=== PATIENT | female | born 1965 | race Caucasian/White ===

== ENCOUNTER → 2017-04-22 | Outpatient (CLI) | payer OTHER ==
--- NOTE | 2017-04-22 15:41 | MAMMOGRAPHY REPORT ---
BILATERAL DIGITAL SCREENING MAMMOGRAM TOMOSYNTHESIS WITH CAD: 04/22/2017 CLINICAL HISTORY: Routine screening. Patient has no complaints. TECHNIQUE: Breast tomosynthesis in addition to standard 2D mammography was performed. Current study was also evaluated with a Computer Aided Detection (CAD) system. COMPARISON: Comparison is made to exam dated: 12/03/2014 mammogram - [facility]. BREAST COMPOSITION: The tissue of both breasts is heterogeneously dense, which may obscure small mas ses. FINDINGS: The parenchymal pattern is unchanged. No developing mass, architectural distortion or clus ter of suspicious microcalcifications is seen in either breast. IMPRESSION: ACR BI-RADS CATEGORY 2: BENIGN There is no mammographic evidence of malignancy. A 1 year screening mammogram is recommended. The pa tient will receive written notification of the results. Approximately 10% of breast cancers are not detected with mammography. A negative mammographic report should not delay biopsy if a clinically suggestive mass is present. Margoth Escalera M.D. ay/:04/22/2017 08:39:32 Electromatic Typist: Leigh Ann SIFUENTES(R)(M), [facility] letter sent: Normal 1/2 BI-RADS Code: ACR BI-RADS Category 2: Benign
== END | disposition home or self-care (01) ==
LOC: C.MAMM 07:25
PROVIDERS: ATTEND Family Medicine
DX: Z12.31 Encounter for screening mammogram for malignant neoplasm of breast (principal)

== ENCOUNTER 2020-10-23 19:56 | Inpatient (IN) ==
[2020-10-23] MEDS ORDERED: ASPIRIN CHEW 324 MG PO STA (20:32)
[2020-10-23] MEDS ORDERED: SODIUM CHLORIDE 0.9% 1000ML 1,000 ML IV STA (20:32)
[2020-10-23 20:38] LABS: Basophils # (auto) 0.04 K/uL (0-0.2); Basophils % (auto) 0.4 %; Eosinophils # (auto) 0.13 K/uL (0-0.5); Eosinophils % (auto) 1.3 %; Hematocrit (blood only) 43.1 % (37-47); Hemoglobin 14.7 g/dL (12.0-16.0); Immature Granulocytes # (auto) 0.05 K/uL (0.00-0.02); Immature Granulocytes % (auto) 0.5 %; Lymphocytes # (auto) 1.13 K/uL (1.2-3.4); Lymphocytes % (auto) 10.9 %; Mean Corpuscular Hemoglobin 32.9 pg (25-34); Mean Corpuscular Hgb Conc 34.1 g/dL (32-36); Mean Corpuscular Volume 96.4 fL (80-100); Mean Platelet Volume 9.7 fL (7.4-10.4); Monocytes # (auto) 0.72 K/uL (0.11-0.59); Neutrophils # (auto) 8.27 K/uL (1.4-6.5); Neutrophils % (auto) 79.9 %; Platelet Count 240 K/uL (130-400); RDW Coefficient of Variation 13.6 % (11.5-14.5); RDW Standard Deviation 48.1 fL (36.4-46.3); Red Blood Count 4.47 M/uL (4.2-5.4); White Blood Count 10.34 K/uL (4.8-10.8)
[2020-10-23 20:45] LABS: BUN Creatinine Ratio 16.9 (10-20); Blood Urea Nitrogen 16 mg/dl (7-18); Calcium 9.3 mg/dl (8.5-10.1); Carbon Dioxide 27 mmol/L (21-32); Chloride 108 mmol/L (98-107); Est GFR (African American) 80.8 ml/min; Est GFR (Non-African American) 69.8 ml/min; Glucose 89 mg/dl (70-99); Lipase 296 U/L (73-393); Potassium 4.5 mmol/L (3.5-5.1); Sodium 141 mmol/L (136-145)
[2020-10-23 20:49] LABS: Partial Thromboplastin Time 26.2 Seconds (21.0-31.0); Prothrombin Time 10.6 Seconds (9.0-12.0)
[2020-10-23 20:50] LABS: Troponin I < 0.015 ng/ml (0-0.045)
--- NOTE | 2020-10-23 22:45 | History & Physical Report ---
Date of Service October 23, 2020 Assessment & Plan (1) Bradycardia: Plan: Patient is a 54 year old female with PMHx Hypertension and Hereditary Hemorrhagic Telangiectasis presenting today with dizziness and bradycardia, given 1mg Atropine during EMS transport for bradycardia and suspected junctional rhythm of 48 bpm. Symptomatic Bradycardia -?medication related vs Lyme carditis -Recent MRI cardiac on 06/07/20 found to have a normal LV and hyperdynamic systolic LVEF 72% without scarring in the septum to suggest HCM -With suspected junctional rhythm as low as 48BPM while at [facility] and EMS -Received 1mg Atropine via EMS -Currently asyptomatic with HR ~55-60's -Lyme IgG and IgM negative -TSH pending -Hold nadolol and verapamil at this time -Continuous monitor on telemetry -Consider glucagon if HR begins to trend downwards again for beta jacob reversal Dispo: Med/Surg Telemetry for continuos cardiac monitoring FEN: Regular diet DVT: SCDs Code: Full History of Present Illness Chief Complaint: Dizziness Primary Care Provider: Ban Dos Santos PA-C Patient is a 54 year old female with PMHx Hypertension and Hereditary Hemorrhagic Telangiectasis presenting today with dizziness and bradycardia, given 1mg Atropine during EMS transport for bradycardia and suspected junctional rhythm of 48 bpm. Patient notes that she was out and had just started walking in the [facility] with her friend around 4:30PM when she noticed she would be come SOB quickly, diaphoretic, and felt dizzy. They rapidly returned to their cars and [facility] she was found to be significantly bradycardic and EMS was called to transport patient for suspected symptomatic junctional rhythm. Patient was given 0.5mg Atropine x2 during transport. She states that she feels significantly better now. She states in the past month she has only been in the [place] 3 times for walks. She notes she takes Nadolol and Verapamil for her hypertension, stating that the verapamil was only added this past March and that she had been on the Nadalol since at least February 2019. She otherwise denies any fever, chills, SOB, chest pain, abdominal pain, headache, current dizziness, NVD. She recently had an MRI cardiac on 06/07/20 screening for HCM found to have a normal LV and hyperdynamic systolic LVEF 72% without scarring in the septum to suggest HCM Medical Hx: HTN, Hereditary Hemorrhagic Telangiectasis, Prolonged QT Surg Hx: Nasal Cautery in June 2020 Soc Hx: Denies tobacco or illicit drug use. Drinks 1-2 drinks per year Allergies Allergy/AdvReac Type Severity Reaction Status Date / Time animal dander Allergy Intermediate SNEEZING, Verified 10/26/20 09:01 CONGESTION POLLEN Allergy Intermediate HAYFEVER Uncoded 10/26/20 09:01 SYMPTOMS Home Medications Medication Instructions Recorded Confirmed Type nadolol 40 mg tablet (Corgard) 40 mg PO DAILY 05/09/20 05/10/20 History verapamil 120 mg tablet,extended 120 mg PO DAILY 05/09/20 05/10/20 History release albuterol sulfate 90 mcg/actuation 2 puff INHALATION DIRECTED PRN 10/23/20 10/23/20 History aerosol inhaler fluticasone 250 mcg-salmeterol 50 1 inh INHALATION BID PRN 10/23/20 10/23/20 History mcg/dose blistr powdr for inhalation (Advair Diskus) levonorgestrel 20 mcg/24 hours (6 20 mcg INTRAUTERINE CONTINOUS 10/23/20 10/23/20 History yrs) 52 mg intrauterine device (Mirena) Past Med/Surg History Medical History (Updated 10/26/20 @ 09:01 by Ban Culp) Asthma Bradycardia 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 Dyspnea HTN (hypertension) Hx of hereditary hemorrhagic telangiectasia (HHT) Hx of primary hypertension No pertinent family history Surgical History (Updated 10/26/20 @ 09:01 by Ban Culp) Hx of breast lump removal benign No pertinent past surgical history Social History (System 10/26/20 @ 09:01 by Ban Culp) Smoking Status: Never smoker Hx Alcohol Use: No Hx Substance Use: No Preferred Language: Malagasy Communication Ability: Effective Beliefs That Will Affect Care: None Current Living Situation: Spouse Feels Safe at Home: Yes Assistive Devices: Glasses Review of Systems Review of Systems: All systems reviewed & are unremarkable except as noted in Subjective Physical Exam Constitutional: well developed, well nourished and cooperative; no acute distress Eyes: PERRL, conjunctivae normal, anicteric sclerae ENMT: external ear and nose normal, oropharynx normal Neck: trachea midline, no thyromegaly Respiratory: normal respiratory effort; no cough Auscultation: lungs clear to auscultation bilaterally; no diminished lung sounds, no crackles, no rales and no wheezes Cardiovascular: Rate/Rhythm: regular rhythm and + bradycardic (54BPM ) Heart Sounds: normal S1 and normal S2; no murmur and no cardiac rub Vessels: no JVD Extremities: no calf tenderness and no edema Gastrointestinal (Abdomen): Inspection/Auscultation: abdomen normal to inspection and normal bowel sounds; abdomen not distended Percussion/Palpation: abdomen soft; abdomen nontender, no guarding and abdomen not rigid Musculoskeletal: no cyanosis or clubbing, extremities motor strength 5/5 Head/Neck/Chest: normocephalic and head atraumatic Skin: no rashes, warm and dry Psychiatric: A+Ox3, euthymic affect Results & Data Results & Data ([facility]) Vital Signs (Past 12 Hours) Vital Signs Temp Pulse Pulse Resp BP BP Pulse Ox 10/23/20 22:30 55 L 20 101/66 100 10/23/20 20:51 48 L 18 90/61 L 100 10/23/20 20:49 49 L 17 100 10/23/20 20:00 36.4 C L 50 L 16 92/58 L 100 Supervising Physician Co-Signing Physician Notes Attending addendum: I have physically seen this patient, have supervised the medical residents activities, and agree with the H&P unless as otherwise noted. Assessment and Plan: Symptomatic bradycardia- The patient will be admitted to telemetry for serial cardiac enzymes, serial EKG's, cardiac rhythm monitoring and a 2-D echocardiogram with Dopplers. Hold nadolol and verapamil Status post 1 mg of atropine in the outpatient setting given by EMS for heart rate low of 48 Heart rate 55-60 in ED with no symptoms Consult cardiology Remaining orders and notations as noted Resident Activity Tracking Resident Involvement: Resident Care Provided Care Provided: Adult Hospital Medicine
[2020-10-23 23:01] LABS: Lyme Ab IgG w/WB Rflx Negative (Negative); Lyme Ab IgM w/WB Rflx Negative (Negative)
[2020-10-24] MEDS ORDERED: ALBUTEROL HFA 8 GM INHALER INH PRN (00:13)
--- NOTE | 2020-10-24 02:47 | Emergency Department Note ---
History of Present Illness General Chief complaint: Shortness of Breath/Dyspnea Stated complaint: Shortness of breath Time Seen by Provider: 10/23/20 20:17 Source: patient and RN notes reviewed History of Present Illness Provider complaint: Dizziness Onset (ago): day(s) 1 Associated symptoms: + shortness of breath and + weakness; no chest pain, no cough, no fever/chills, no headaches or no nausea/vomiting 54-year-old female presents emergency department for dizziness. Per the patient, she went out for a walk and approximately 20 to 40 minutes into her walk she became very dizzy and shortness of breath. Patient states she felt like the room was spinning and then she was can pass out. Patient denies any chest pain. Patient was sweaty. Patient states she then went to urgent care. At urgent care the patient was found to be hypotensive and bradycardic and was given atropine a total of 1 mg which improved her symptoms. Home Medications Medication Instructions Recorded Confirmed Type albuterol sulfate 90 mcg/actuation 2 puff INHALATION DIRECTED PRN 10/23/20 10/23/20 History aerosol inhaler fluticasone 250 mcg-salmeterol 50 1 inh INHALATION BID PRN 10/23/20 10/23/20 History mcg/dose blistr powdr for inhalation (Advair Diskus) levonorgestrel 20 mcg/24 hours (6 20 mcg INTRAUTERINE CONTINOUS 10/23/2007/08 History yrs) 52 mg intrauterine device (Mirena) nadolol 40 mg tablet 40 mg PO DAILY 10/23/20 10/23/20 History verapamil 120 mg tablet,extended 120 mg PO DAILY 10/23/20 10/23/20 History release Allergies Allergy/AdvReac Type Severity Reaction Status Date / Time animal dander Allergy Intermediate SNEEZING, Verified 10/23/20 20:37 CONGESTION POLLEN Allergy Intermediate HAYFEVER Uncoded 10/23/20 20:37 SYMPTOMS Past Med/Surg History Medical History (Updated 10/24/20 @ 02:47 by Garrick Lin) Asthma HTN (hypertension) No pertinent family history Surgical History (Updated 10/24/20 @ 02:44 by Garrick Lin) No pertinent past surgical history Social History Smoking Status: Never smoker Hx Alcohol Use: No Hx Substance Use: No Preferred Language: Armenian Communication Ability: Effective Beliefs That Will Affect Care: None Current Living Situation: Spouse Feels Safe at Home: Yes Safety Concerns: Feels Safe At This Time Review of Systems A total of 10 systems reviewed and were otherwise negative Physical Exam Vital Signs Vital Signs - 24 hr 10/23/20 20:00 10/23/20 20:49 10/23/20 20:51 Temperature 36.4 C L Temperature Source Oral Pulse Rate 50 L 49 L Pulse Rate [Apical] 48 L Respiratory Rate 16 17 18 Respiratory Effort / Characteristics Non-Labored Spontaneous Non-Labored Spontaneous Respiratory Depth Normal Normal Blood Pressure 92/58 L Blood Pressure [Left Arm] 90/61 L Blood Pressure Mean 69 Blood Pressure Mean [Left Arm] 70 Pulse Oximetry 100 100 100 Oxygen Delivery Method Room Air Room Air Room Air Sepsis Recent Fever Within 48 Hours No Sepsis New/Unexplained Change in Mental Status N/A Sepsis Action Taken by Nursing No Action Required 10/23/20 22:30 Temperature Temperature Source Pulse Rate Pulse Rate [Apical] 55 L Respiratory Rate 20 Respiratory Effort / Characteristics Non-Labored Spontaneous Respiratory Depth Normal Blood Pressure Blood Pressure [Left Arm] 101/66 Blood Pressure Mean Blood Pressure Mean [Left Arm] 77 Pulse Oximetry 100 Oxygen Delivery Method Room Air Sepsis Recent Fever Within 48 Hours Sepsis New/Unexplained Change in Mental Status Sepsis Action Taken by Nursing Physical Exam GENERAL: She is oriented to person, place, and time. She appears well-developed and well-nourished. She does not appear distressed. HENT: Exam performed. -Head: Normocephalic and atraumatic. -Right Ear: External ear normal. No mastoid tenderness. -Left Ear: External ear normal. No mastoid tenderness. -Mouth/Throat: The oropharynx is clear and moist. No trismus in the jaw. No dental abscesses or uvula swelling. No oropharyngeal exudate or tonsillar absc esses. EYES: Conjunctivae and EOM are normal. Pupils are equal, round, and reactive to light. Right eye exhibits no discharge. Left eye exhibits no discharge. No scleral icterus. NECK: Normal range of motion. Neck supple. No JVD present. No spinous process tenderness present. No carotid bruit present. No rigidity. No tracheal deviation and normal range of motion present. No Brudzinski's sign and no Kernig's sign noted. CV: Bradycardic rate, regular rhythm, normal heart sounds and intact distal p ulses. There is no peripheral edema. Palpable radial pulses bue. PULM/CHEST: Effort normal and breath sounds normal. No respiratory distress. No stridor. She has no wheezes. She has no rales. -Chest Wall: She exhibits no tenderness. ABD: The abdomen is soft. Bowel sounds are normal. She has no distension. No mass is present. There is no tenderness. There is no rebound, no guarding, no Melara's sign and no tenderness at McBurney's point. Rovsig negative MUSC/SKEL: Normal range of motion. There is no peripheral edema, tenderness or deformity. LYMPH: No cervical adenopathy. NEURO: She is alert and oriented to person, place, and time. She has normal strength. No cranial nerve deficit or sensory deficit. Coordination and gait normal. GCS eye subscore is 4. GCS verbal subscore is 5. GCS motor subscore is 6. Cerebellar tests wnl. SKIN: Skin is warm and dry. She is not diaphoretic. PSYCH: She has a normal mood and affect. Behavior is normal. Judgment and thought content normal. Course Course 2017: The patient was evaluated in room B4. A complete history and physical exam was performed Cardiac monitoring: An order was placed for continuous cardiac monitoring. The monitor shows a rate of 50 with sinus rhythm 2215: Vital signs stable. Labs and imaging are within normal limits. Patient will be admitted to the hospitalist team giving her improvement of symptoms with atropine at the urgent care. Administered Medications Discontinued Medications Aspirin (Aspirin Chew 324 Mg) 324 mg PO NOW STA Stop: 10/23/20 20:33 Last Admin: 10/23/20 20:44 Dose: 324 mg Documented by: [id number] Sodium Chloride (Nss 1000ml) 1,000 mls @ 999 mls/hr IV .Q1H1M STA Stop: 10/23/20 21:32 Last Infusion: 10/23/20 21:46 Dose: 0 mls/hr Documented by: [id number] Admin: 10/23/20 20:44 Dose: 999 mls/hr Documented by: [id number] Medical Decision Making Laboratory Data Result diagrams: 10/23/20 19:50 10/23/20 19:50 Lab Results 10/23/20 10/23/20 10/23/20 Range/Units 19:50 19:50 19:50 WBC 10.34 (4.8-10.8) K/uL RBC 4.47 (4.2-5.4) M/uL Hgb 14.7 (12.0-16.0) g/dL Hct 43.1 (37-47) % MCV 96.4 (80-100) fL MCH 32.9 (25-34) pg MCHC 34.1 (32-36) g/dL RDW Std Deviation 48.1 H (36.4-46.3) fL RDW Coeff of Jeannette 13.6 (11.5-14.5) % Plt Count 240 (130-400) K/uL MPV 9.7 (7.4-10.4) fL Immature Gran % (Auto) 0.5 % Neut % (Auto) 79.9 % Lymph % (Auto) 10.9 % [place] % (Auto) 7.0 % Eos % (Auto) 1.3 % Baso % (Auto) 0.4 % Neut # (Auto) 8.27 H (1.4-6.5) K/uL Lymph # (Auto) 1.13 L (1.2-3.4) K/uL [place] # (Auto) 0.72 H (0.11-0.59) K/uL Eos # (Auto) 0.13 (0-0.5) K/uL Baso # (Auto) 0.04 (0-0.2) K/uL Immature Gran # (Auto) 0.05 H (0.00-0.02) K/uL PT 10.6 (9.0-12.0) Seconds INR 1.0 (0.9-1.1) APTT 26.2 (21.0-31.0) Seconds PTT Ratio 1.0 Sodium 141 (136-145) mmol/L Potassium 4.5 (3.5-5.1) mmol/L Chloride 108 H (98-107) mmol/L Carbon Dioxide 27 (21-32) mmol/L Anion Gap 6.0 (3-11) BUN 16 (7-18) mg/dl Creatinine 0.94 (0.6-1.2) mg/dl Est Cr Clr Drug Dosing 60.0 ml/min Est GFR ( Amer) 80.8 ml/min Est GFR (Non-Af Amer) 69.8 ml/min BUN/Creatinine Ratio 16.9 (10-20) Glucose 89 (70-99) mg/dl Calcium 9.3 (8.5-10.1) mg/dl Magnesium 2.0 (1.8-2.4) mg/dl Troponin I < 0.015 (0-0.045) ng/ml Lipase 296 (73-393) U/L TSH 2.160 (0.300-4.500) uIu/ml Lyme Disease IgG Ab (Negative) Lyme Disease IgM Ab (Negative) COVID-19 Eval Order SARS-CoV-2 (PCR) (Negative) 10/23/20 10/23/20 10/23/20 Range/Units 19:50 20:30 20:30 WBC (4.8-10.8) K/uL RBC (4.2-5.4) M/uL Hgb (12.0-16.0) g/dL Hct (37-47) % MCV (80-100) fL MCH (25-34) pg MCHC (32-36) g/dL RDW Std Deviation (36.4-46.3) fL RDW Coeff of Jeannette (11.5-14.5) % Plt Count (130-400) K/uL MPV (7.4-10.4) fL Immature Gran % (Auto) % Neut % (Auto) % Lymph % (Auto) % [place] % (Auto) % Eos % (Auto) % Baso % (Auto) % Neut # (Auto) (1.4-6.5) K/uL Lymph # (Auto) (1.2-3.4) K/uL [place] # (Auto) (0.11-0.59) K/uL Eos # (Auto) (0-0.5) K/uL Baso # (Auto) (0-0.2) K/uL Immature Gran # (Auto) (0.00-0.02) K/uL PT (9.0-12.0) Seconds INR (0.9-1.1) APTT (21.0-31.0) Seconds PTT Ratio Sodium (136-145) mmol/L Potassium (3.5-5.1) mmol/L Chloride (98-107) mmol/L Carbon Dioxide (21-32) mmol/L Anion Gap (3-11) BUN (7-18) mg/dl Creatinine (0.6-1.2) mg/dl Est Cr Clr Drug Dosing ml/min Est GFR ( Amer) ml/min Est GFR (Non-Af Amer) ml/min BUN/Creatinine Ratio (10-20) Glucose (70-99) mg/dl Calcium (8.5-10.1) mg/dl Magnesium (1.8-2.4) mg/dl Troponin I (0-0.045) ng/ml Lipase (73-393) U/L TSH (0.300-4.500) uIu/ml Lyme Disease IgG Ab Negative (Negative) Lyme Disease IgM Ab Negative (Negative) COVID-19 Eval Order Covid19 at [facility] SARS-CoV-2 (PCR) NEGATIVE (Negative) Imaging Data My Impression: Chest x-ray negative. Airway clear. No pneumothorax. No consolidation. No cardiomegaly or cephalization.. No free air under the diaphragm. No fractures of the skeletal structures. ECG Data Additional Comments: Junctional rhythm with a rate of 50. QRS 74. QTc 441. No ST elevation or ST depression. MDM Narrative Vital signs stable. Labs and imaging are within normal limits. Patient will be admitted to the hospitalist team giving her improvement of symptoms with atropine at the urgent care. Impression & Plan Bradycardia, Dyspnea Discharge Plan Visit Data Chief Complaint: Shortness of Breath/Dyspnea Stated Complaint: Shortness of breath Discharge Problem: Bradycardia, Dyspnea Patient Disposition: Admitted As Inpatient Discharge Instructions Interventions: ED Discharge Assessment Last Done: 10/23/20 23:32
[2020-10-24] MEDS ORDERED: MELATONIN 3 MG TAB PO PRN (08:16)
--- NOTE | 2020-10-24 08:47 | XRay Report ---
XR chest 1V portable CLINICAL HISTORY: Chest Pain COMPARISON STUDY: No previous studies for comparison. FINDINGS: Lung volumes are normal. Lungs are clear. There is no pneumothorax or pleural effusion. Car diac size is at the upper limits of normal. Mediastinal contours are normal. There is no evidence for pulmonary edema. IMPRESSION: No acute cardiopulmonary findings. ACT 112: Negative or not required by law. Electronically signed by: Yonny Morales M.D. 10/24/2020 8:45 AM
--- NOTE | 2020-10-24 09:28 | Hospitalist Progress Note ---
Date of Service October 24, 2020 Assessment & Plan (1) Bradycardia: Plan: -likely medication related * vs Lyme carditis, given negative Lyme serologies (unusual for a secondary lyme manifestation). Also per pt, was started on Verapamil [place] Mar. by Dr. Diez with BPs already in the 120s/90s, which likely contributed to dizziness, low BP (though unclear why sudden incidence after being asymptomatic on Verapamil for 7 months) -still on telemetry -currently asymptomatic with HRs in the 50s and 60s -TSH normal -placed cardiology consult-- recs: * continue holding nadolol and verapamil * can be discharged today; f/u with Dr. Diez tomorrow about restarting either Verapamil or Nadolol (should not be on both) * can restart only Verapamil if no contact with Dr. Diez by noon tomorrow Admission and Anticipated Discharge Date Admission Date: October 23, 2020 Supervising Physician Co-Signing Physician Notes I also saw the patient and confirmed boland portions of the history and exam. I agree with the impression and plan as noted in the resident documentation. Please see discharge note of same date for complete attestation. Subjective Azucena Laura is a 54 year old woman who is here for observation after admission for an episode of bradycardia that occurred yesterday. Today she feels fine. Denies SOB, chest pain, wheezing or fatigue. She is ambulating to urinate without difficulty. She has no subjective complaints. She provided additional history in conversation this morning: she became fatigued and dizzy very suddenly while walking in the [place] yesterday; needed multiple stops on her way back to catch her breath; denied crushing chest pain or shortness of breath; further denies any previous similar incidents; received atropine in ambulance for a heart rate of 48. Review of Systems Review of Systems: All systems reviewed & are unremarkable except as noted in HPI & below Physical Exam Constitutional: WD/WN, vitals as above Respiratory: normal respiratory effort, lungs clear to auscultation Cardiovascular: Heart Sounds: + murmur Extremities: normal capillary refill Musculoskeletal: Extremities: extremities normal to inspection Results & Data Results & Data ([facility]) Vital Signs (Past 12 Hours) Vital Signs Temp Pulse Pulse Resp BP BP Pulse Ox 10/24/20 06:52 36.7 C 63 16 98/60 L 98 10/24/20 02:46 36.8 C 50 L 16 96/58 L 98 10/24/20 00:18 36.6 C 54 L 16 108/64 100 10/23/20 22:30 55 L 20 101/66 100 Resident Activity Tracking Resident Involvement: Resident Care Provided Care Provided: Adult Hospital Medicine
--- NOTE | 2020-10-24 10:07 | Electrocardiogram Report ---
Test Reason : Blood Pressure : / mmHG Vent. Rate : 050 BPM Atrial Rate : 036 BPM P-R Int : 000 ms QRS Dur : 074 ms QT Int : 484 ms P-R-T Axes : 000 063 052 degrees QTc Int : 441 ms Poor data quality, interpretation may be adversely affected Junctional rhythm Abnormal ECG No previous ECGs available Confirmed by Manpreet Winslow ([id number]) on 10/24/2020 10:07:15 AM Referred By: REFERRED SELF Confirmed By:Manpreet Winslow
--- NOTE | 2020-10-24 10:19 | Electrocardiogram Report ---
Test Reason : Blood Pressure : / mmHG Vent. Rate : 049 BPM Atrial Rate : 049 BPM P-R Int : 186 ms QRS Dur : 090 ms QT Int : 504 ms P-R-T Axes : 019 049 049 degrees QTc Int : 455 ms Sinus bradycardia Otherwise normal ECG When compared with ECG of 23-OCT-2020 19:56, Sinus rhythm has replaced Junctional rhythm Confirmed by Manpreet Winslow ([id number]) on 10/24/2020 10:18:48 AM Referred By: REFERRED SELF Confirmed By:Manpreet Winslow
--- NOTE | 2020-10-24 14:01 | Cardiology Consultation ---
Date of Consultation October 24, 2020 Assessment & Plan (1) Bradycardia: Patient with transient bradycardia which resolved off negative chronotropic medications. Unclear why she no longer tolerates her long-term negative chronotropic regimen, but her heart rate has now normalized and she is asymptomatic currently. Since her long QT interval is only borderline and has not been associated with symptoms or dysrhythmia, while her dynamic left ventricular outflow tract obstruction has been associated with symptoms (dyspnea on exertion), would favor restarting verapamil and holding nadolol. However, defer this decision to her log brander, Dr. Diez. She is doing well, and can be discharged home off both nadolol and verapamil. I recommended that she call Dr. Diez in the morning for direction on restarting her negative chronotropic medication. I will contact him as well. If for some reason he is not readily contactable, advised the patient to restart verapamil 120 mg daily as of tomorrow midday, but remain off nadolol until she receives a definitive recommendation. Case discussed discussed with Dr. Schreiber (2) Dynamic left ventricular outflow obstruction: Since this has been symptomatic, unless directed otherwise by her primary log brander, she will restart verapamil tomorrow. (3) Long QT interval: As noted, this has been borderline and asymptomatic. Given her hospital admission for bradycardia, she will remain off nadolol unless otherwise directed by her primary log brander. 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 She is followed by Dr. Diez. He has been evaluating her cardiac abnormalities and obtained a cardiac MRI which showed no evidence of myocardial scarring, weighing against hereditary hypertrophic cardiomyopathy. She was placed on the nadolol sometime ago for borderline prolonged QT, verapamil was added for her hyperdynamic left ventricular function. She had tolerated both medications for quite some time, noting that her heart rate was usually in the 60 bpm range. Yesterday well walking she became presyncopal and dyspneic. She was seen in urgent care where she was hypotensive and bradycardic and given atropine with symptomatic improvement. Upon presentation to [facility], she was mildly hypotensive (92/58 mmHg) and mildly bradycardic (junctional bradycardia 50 bpm). Her nadolol and verapamil were held overnight, her rate is now up to 60 bpm and she feels well. She was able to walk to the bathroom and back without difficulty and notes no lightheadedness, dyspnea, or other complaints. She did not have chest pain at any time. Allergies Allergy/AdvReac Type Severity Reaction Status Date / Time animal dander Allergy Intermediate SNEEZING, Verified 10/23/20 20:37 CONGESTION POLLEN Allergy Intermediate HAYFEVER Uncoded 10/23/20 20:37 SYMPTOMS Home Medications Medication Instructions Recorded Confirmed Type albuterol sulfate 90 mcg/actuation 2 puff INHALATION DIRECTED PRN 10/23/20 10/23/20 History aerosol inhaler fluticasone 250 mcg-salmeterol 50 1 inh INHALATION BID PRN 10/23/20 10/23/20 History mcg/dose blistr powdr for inhalation (Advair Diskus) levonorgestrel 20 mcg/24 hours (6 20 mcg INTRAUTERINE CONTINOUS 10/23/20 10/23/20 History yrs) 52 mg intrauterine device (Mirena) nadolol 40 mg tablet 40 mg PO DAILY 10/23/20 10/23/20 History verapamil 120 mg tablet,extended 120 mg PO DAILY 10/23/20 10/23/20 History release Patient History Medical History Asthma HTN (hypertension) No pertinent family history Surgical History No pertinent past surgical history Social History Smoking Status: Never smoker Hx Alcohol Use: No Hx Substance Use: No Preferred Language: Hungarian Communication Ability: Effective Beliefs That Will Affect Care: None Current Living Situation: Spouse Feels Safe at Home: Yes Safety Concerns: Feels Safe At This Time Assistive Devices: Glasses Physical Exam Physical Exam: Adult female who appears comfortable. Normotensive. Pulse 60 bpm and regular without ectopy. Skin: no ecchymoses or generalized lesions. HEENT: unremarkable. Neck: no JVD or carotid bruits. Lungs: clear. Cardiac: regular rhythm, 3/6 systolic ejection murmur right upper sternal border with intact aortic closure sound, 2/6 apical holosystolic murmur. No diastolic murmur or gallop. Abdomen: benign. Extremities: no edema, pulses intact. Neurologic: normal affect and conversation, nonfocal. Results & Data ([facility]) Vital Signs (Past 12 Hours) Vital Signs Temp Pulse Pulse Resp BP Pulse Ox 10/24/20 11:37 97.7 F 58 L 18 109/71 98 10/24/20 09:10 54 L 10/24/20 06:52 98.1 F 63 16 98/60 L 98 10/24/20 02:46 98.2 F 50 L 16 96/58 L 98 Laboratory Results Troponin negative. Normal electrolytes, BUN 16, creatinine 0.94. Diagnostic Findings ECG yesterday showed junctional rhythm at 50 bpm with a corrected QT of 441 ms. ECG today showed sinus bradycardia at 49 bpm with a corrected QT of [address] Diez's office 03/31/2020 showed sinus rhythm at 67 bpm with QTC of 450 ms. Echocardiogram April 2020 showed EF 76% with mild LVH and asymmetric septal hypertrophy (up to 1.4 cm wall thickness), grade 2 diastolic dysfunction, LVOT dynamic obstruction with peak velocity of 3.3 m/s, systolic anterior motion of the anterior mitral leaflet with moderate mitral regurgitation. Cardiac MRI May 2020 showed moderate asymmetric basal septal hypertrophy with accelerated LVOT flow and CARLOS of the mitral valve with mild MR. No evidence of myocardial fibrosis or scarring. PG Care Time/CCT Total # of Minutes Spent Total Time Spent with Patient: Total time spent is greater than 50% in coordination of care (as documented) at patient's floor/unit and/or counseling patient: Coding Level of Care Code 70159 Inpt Consult Level 4 Diagnoses Long QT interval R94.31 Dynamic left ventricular outflow obstruction I51.89 Bradycardia R00.1
--- NOTE | 2020-10-24 17:46 | Discharge Summary ---
Date of Service October 24, 2020 Admission HPI Per Admitting Provider Patient is a 54 year old female with PMHx Hypertension and Hereditary Hemorrhagic Telangiectasis presenting today with dizziness and bradycardia, given 1mg Atropine during EMS transport for bradycardia and suspected junctional rhythm of 48 bpm. Patient notes that she was out and had just started walking in the [place] with her friend around 4:30PM when she noticed she would be come SOB quickly, diaphoretic, and felt dizzy. They rapidly returned to their cars and patient presented to [facility] where she was found to be significantly bradycardic and EMS was called to transport patient for suspected symptomatic j unctional rhythm. Patient was given 0.5mg Atropine x2 during transport. She states that she feels significantly better now. She states in the past month she has only been in the [place] maybe 3 times for walks. She notes she takes Nadolol and Verapamil for her hypertension, stating that the verapamil was only added this past March and that she had been on the Nadalol since at least February 2019. She otherwise denies any fever, chills, SOB, chest pain, abdominal pain, headache, current dizziness, NVD. She recently had an MRI cardiac on 06/07/20 screening for HCM found to have a normal LV and hyperdynamic systolic LVEF 72% without scarring in the septum to suggest HCM Medical Hx: HTN, Hereditary Hemorrhagic Telangiectasis, Prolonged QT Surg Hx: Nasal Cautery in June 2020 Soc Hx: Denies tobacco or illicit drug use. Drinks 1-2 drinks per year Admission Exam Per Admitting Provider Constitutional: well developed, well nourished and cooperative; no acute distress Eyes: PERRL, conjunctivae normal, anicteric sclerae ENMT: external ear and nose normal, oropharynx normal Neck: trachea midline, no thyromegaly Respiratory: normal respiratory effort; no cough Auscultation: lungs clear to auscultation bilaterally; no diminished lung sounds, no crackles, no rales and no wheezes Cardiovascular: Rate/Rhythm: regular rhythm and + bradycardic (54BPM ) Heart Sounds: normal S1 and normal S2; no murmur and no cardiac rub Vessels: no JVD Extremities: no calf tenderness and no edema Gastrointestinal (Abdomen): Inspection/Auscultation: abdomen normal to inspection and normal bowel sounds; abdomen not distended Percussion/Palpation: abdomen soft; abdomen nontender, no guarding and abdomen not rigid Musculoskeletal: no cyanosis or clubbing, extremities motor strength 5/5 Head/Neck/Chest: normocephalic and head atraumatic Skin: no rashes, warm and dry Psychiatric: A+Ox3, euthymic affect Principal Diagnosis Bradycardia Discharge Exam Constitutional WD/WN, vitals as above Respiratory normal respiratory effort, lungs clear to auscultation Cardiovascular Heart Sounds: + murmur Extremities: normal capillary refill Musculoskeletal Extremities: extremities normal to inspection Discharge Data Allergies Allergy/AdvReac Type Severity Reaction Status Date / Time animal dander Allergy Intermediate SNEEZING, Verified 10/23/20 20:37 CONGESTION POLLEN Allergy Intermediate HAYFEVER Uncoded 10/23/20 20:37 SYMPTOMS Consultations 10/23/20 22:16 ED Decision to Admit Stat 10/24/20 11:15 Consult Cardiology Routine Hospital Course (1) Bradycardia: Azucena Laura is a 54 year old woman with a PMHx of hereditary telangie ctasia, and prolonged QT syndrome, who presented to the ED with dizziness and SOB, then evaluated and admitted for bradycardia. She received atropine on her way to the ED, which improved her HR to normal ranges. She was placed under observation with telemetry and cardiology was consulted to provide medication guidance. -fortunately, no further episodes of bradycardia or pauses were observed on te lemetry -as for etiology, electrolytes normal, TSH w/in normal limits, Lyme serology negative -thought to be medication related (pt on nadolol for hx of long QT) and verapamil * explanation for sudden symptomatic bradycardia (given that she has been on nadolol since feb 2019 and Verapamil since 2020 with no prior episodes) remains to be determined -cardiology consulted; cleared for discharge; advised holding both nadolol and verapamil until she follows up with cardiology outpatient tomorrow with Dr. Diez Total Time Total Time Spent Total Time Spent (In Minutes): 30 minutes Total Time Includes: Examination of the Patient, Discharge Planning, Medication Reconciliation and Communication With Other Providers Discharge Plan Discharge Items Patient Disposition: Home - Self-Care Reason For Visit: SYMPTOMATIC BRADYCARDIA Discharge Diagnosis: Bradycardia Activity: Per Instructions section Non-emergency contact: Primary Care Provider Call non-emergency contact if: your symptoms worsen Follow-up/Referrals: Ban Dos Santos PA-C [Primary Care Provider] - Diet: Regular Addtl Attending Provider Instructions: Dear Azucena, You were brought to the hospital for shortness of breath on exertion. You were evaluated at the hospital and admitted for bradycardia, or a slow heart rate. You received atropine before you arrived at the hospital for your slow heart rate, which brought your HR up to a normal level. We monitored your heart rate and rhythm during your hospital stay, and fortunately we observed no further abnormal rates. We consulted with the cardiology team to provide additional guidance as well, Dr. Winslow recommend you hold (refrain from taking) your Verapamil and Nadolol. You should call your driver sales, Dr. Diez, tomorrow morning, 10/25/20 and ask him if you should resume one or both of those medications. If you have not heard from him by noon tomorrow, you can restart only the Verapamil. You should also follow up with your primary care provider. If you experience the same symptoms as before, do not hesitate to return to the Emergency Department. You should also come back if you experience any crushing chest pain (at rest or with exertion), dizziness or fainting, or shortness of breath with mild to moderate activity. It has been our pleasure to take care of you at [facility]. Please feel free to reach out with any questions. Pending Studies at Discharge: No Stand-Alone Forms: My [facility], Smoking Cessation Medications and DC Order Prescriptions: Continued fluticasone propion-salmeterol [Advair Diskus] 250-50 mcg/dose Blister With Device 1 inh INHALATION BID PRN (Reason: Cold Symptoms) RF: 0 Mirena 20 mcg/24 hours (6 yrs) 52 mg Intrauterine Device 20 mcg INTRAUTERINE CONTINOUS RF: 0 albuterol sulfate 90 mcg/actuation Hfa Aerosol Inhaler 2 puff INHALATION DIRECTED PRN (Reason: Shortness Of Breath) RF: 0 Discontinued verapamil 120 mg Tablet Extended Release 120 mg PO DAILY RF: 0 nadolol 40 mg Tablet 40 mg PO DAILY RF: 0 Discharge Orders: Discharge Order (Routine); Ordered 10/24/20 Ordered By: Reza Nina/Other Patient Handouts: Understanding Bradycardia Admission Data Admit Date/Time: 10/23/20 22:49 Attending Provider: Cal Baez Admit Provider: Jj Rodriguez Primary Care Provider: Ban Dos Santos Other Providers: Igor Lockwood ; Manpreet Winslow Other Interventions: Discharge Summary Assessment (RN) Last Done: 10/24/20 14:28 Supervising Physician Co-Signing Physician Notes I also saw the patient and confirmed boland portions of the history and exam. 54 y/o female admitted yesterday after dizziness, lightheadedness, near-syncope found to be bradycardic. Treated with atropine in route from urgent care office to ED. Beta jacob and CCB held since admission; patient remained in NSR without pause, bradycardia, or symptoms. She is active, has been running for the last three months without symptoms. Notes no with every day activity. Wears a smart watch with HR monitoring, although does not routinely check. History of prolonged QT. Had cardiac MRI a few years ago to assess for HCM, negative; stress test in 2018 negative. Lyme antibodies negative. She follows closely with cardiology and EP. She feels well today. Appreciate cardiology input. Will discharge today; continue to hold both medications. Will coordinate outpatient follow up - in the least, telephone instructions for medications tomorrow. Resident Activity Tracking Resident Involvement: Resident Care Provided Care Provided: Adult Hospital Medicine
--- NOTE | 2020-10-29 12:12 | Billing Data ---
Date of Service October 29, 2020 Coding Level of Care Code 08867 Initial Inpt Care Lvl 2
== END 2020-10-24 15:20 | disposition home or self-care (01) | DRG 310 ==
LOC: EDBD → ED 19:56 → MERGE 22:49 → 2W 22:49 → SUATTDRO 22:49 → 2W 23:32

== ENCOUNTER 2021-05-30 05:49 | Inpatient (IN) ==
[2021-05-30] MEDS ORDERED: PANTOprazole 40 MG in SYRINGE 0 ML IV ONE (06:12)
--- NOTE | 2021-05-30 06:19 | Emergency Department Note ---
History of Present Illness General Chief complaint: Vomiting Stated complaint: BLOODY VOMITING AND DIARRHEA Time Seen by Provider: 05/30/21 06:14 Source: patient Mode of arrival: EMS Limitations: no limitations History of Present Illness Provider complaint: Dizziness, vomiting, GI bleed This is a 55-year-old female brought in by EMS after complaining of dizziness, vomiting, GI bleed at home. Patient states she began having symptoms of increased breathlessness and had an episode of vomiting a week ago Saturday. She states she noticed she was more fatigued and out of breath with exertion as well as having difficulty laying flat. She states she went for a chest x-ray as an outpatient after contacting her family doctor as well as a Covid test. She states she then contacted her signal repairer who sent her for a CAT scan the end of last week. She states she was diagnosed with fluid on her lungs and started on furosemide. She states when she started this she was told to stop taking her verapamil. Patient states she has a history of a mildly enlarged heart. Patient is not on any aspirin or anticoagulation. Patient denies any prior history of GERD/PUD. Patient states she woke up this morning and felt nauseated while trying to get to the bathroom thinking she needed to vomit, she felt increasingly dizzy, and lowered herself to the ground to prevent falling and passing out and vomited. She states she then called for her who came and helped her to the bathroom. EMS reported she had also apparently lost control of her bowels. EMS stated that there was evidence of blood in the patient states her had noted this as well. No prior history of GI bleed. Pt seen during a time of high acuity and national emergency pandemic while wearing PPE. Home Medications Medication Instructions Recorded Confirmed Type albuterol sulfate 90 mcg/actuation 2 puff INHALATION DIRECTED PRN 10/23/20 05/30/21 History aerosol inhaler fluticasone 250 mcg-salmeterol 50 1 inh INHALATION BID PRN 10/23/20 05/30/21 History mcg/dose blistr powdr for inhalation (Advair Diskus) levonorgestrel 20 mcg/24 hours (7 20 mcg INTRAUTERINE CONTINOUS 10/23/20 05/30/21 History yrs) 52 mg intrauterine device (Mirena) cholecalciferol (vitamin D3) 25 25 mcg PO QAM 05/30/21 05/30/21 History mcg (1,000 unit) capsule (Vitamin D3) colchicine 0.6 mg tablet 0.6 mg PO BID 05/30/21 05/30/21 History furosemide 20 mg tablet 20 mg PO QA 05/30/21 05/30/21 History nadolol 20 mg tablet 10 mg PO BID 05/30/21 05/30/21 History Allergies Allergy/AdvReac Type Severity Reaction Status Date / Time animal dander Allergy Intermediate SNEEZING, Verified 05/30/21 13:44 CONGESTION Past Med/Surg History Medical History Asthma Bradycardia 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 Dyspnea HTN (hypertension) Hx of hereditary hemorrhagic telangiectasia (HHT) Hx of primary hypertension No pertinent family history Surgical History Hx of breast lump removal benign No pertinent past surgical history Social History Smoking Status: Never smoker Hx Alcohol Use: Yes Hx Substance Use: No Preferred Language: Czech Communication Ability: Effective Business Instructor Required: No Beliefs That Will Affect Care: None Current Living Situation: Spouse and Family Current Living Situation Comment: and 2 children Feels Safe at Home: Yes Safety Concerns: Feels Safe At This Time Assistive Devices: Glasses Assistive Devices Comment: reading glasses, mouth guard at night Review of Systems A total of 10 systems reviewed and were otherwise negative All systems reviewed & are unremarkable except as noted in HPI & below Physical Exam Vital Signs Vital Signs - 24 hr 05/30/21 06:00 05/30/21 06:02 05/30/21 06:08 Temperature 36.6 C Temperature Source Oral Pulse Rate 85 83 Pulse Rate [Apical] Respiratory Rate 18 18 Respiratory Effort / Characteristics Non-Labored Spontaneous Respiratory Depth Normal Respiratory Pattern Regular Blood Pressure 107/61 Blood Pressure [Right Arm] 91/59 L Blood Pressure Mean 76 Blood Pressure Mean [Right Arm] 69 Blood Pressure Position Lying Blood Pressure Position [Right Arm] Lying Pulse Oximetry 100 Oxygen Delivery Method Room Air Sepsis Recent Fever Within 48 Hours No Sepsis New/Unexplained Change in Mental Status N/A Sepsis Action Taken by Nursing No Action Required 05/30/21 06:10 05/30/21 06:20 05/30/21 07:13 Temperature Temperature Source Pulse Rate 86 87 Pulse Rate [Apical] 87 Respiratory Rate 18 16 18 Respiratory Effort / Characteristics Respiratory Depth Respiratory Pattern Blood Pressure Blood Pressure [Right Arm] 108/73 Blood Pressure Mean Blood Pressure Mean [Right Arm] 84 Blood Pressure Position Blood Pressure Position [Right Arm] Pulse Oximetry 98 97 Oxygen Delivery Method Room Air Sepsis Recent Fever Within 48 Hours Sepsis New/Unexplained Change in Mental Status Sepsis Action Taken by Nursing GENERAL: alert, unwell appearing, well nourished, no distress, non-toxic EYE EXAM: normal conjunctiva, PERRL and EOM's grossly intact OROPHARYNX: no exudate, no erythema, lips, buccal mucosa, and tongue normal and mucous membranes are moist NECK: supple, no nuchal rigidity, no adenopathy, non-tender LUNGS: Clear to auscultation. Normal chest wall mechanics, no w/r/r HEART: NIDA noted - pt aware and states she has been made aware of this previously, S1 normal and S2 normal ABDOMEN: abdomen soft, non-tender, normo-active bowel sounds, no masses, no rebound or guarding. BACK: Back is symmetrical on inspection and there is no deformity, no midline tenderness, no CVA tenderness. SKIN: no rashes and no bruising, pallor UPPER EXTREMITIES: upper extremities are grossly normal. FROM, nml pulses b/l. LOWER EXTREMITIES: No pitting edema. FROM, nml pulses b/l. Evidence of dried blood noted in the patient's feet. NEURO EXAM: Normal sensorium, cranial nerves II-XII grossly intact, normal speech, no gross weakness of arms, no gross weakness of legs. Gross sensation intact. Course Course 0635: VS improved. 0702: No further nausea or vomiting. No abdominal pain. 0735: Pt updated on results. Blood pressure stable. 0740: Discussed with Dr. Reddy. Administered Medications Sodium Chloride (Nss 1000ml) 1,000 mls @ 125 mls/hr IV .Q8H MIRA Stop: 06/29/21 06:14 Last Admin: 05/31/21 03:55 Dose: 125 mls/hr Documented by: [id number] Infusion: 05/31/21 03:55 Dose: 125 mls/hr Documented by: [id number] Admin: 05/30/21 20:10 Dose: 125 mls/hr Documented by: [id number] Infusion: 05/30/21 19:09 Dose: 125 mls/hr Documented by: [id number] Admin: 05/30/21 11:09 Dose: 125 mls/hr Documented by: [id number] Infusion: 05/30/21 11:09 Dose: 0 mls/hr Documented by: [id number] Admin: 05/30/21 06:28 Dose: 125 mls/hr Documented by: [id number] Parenteral Electrolytes (Plasma-Lyte A) 1,000 mls @ 100 mls/hr IV .Q10H MIRA Stop: 05/31/21 10:00 Last Admin: 05/30/21 22:44 Dose: 100 mls/hr Documented by: [id number] Infusion: 05/30/21 21:38 Dose: 100 mls/hr Documented by: [id number] Admin: 05/30/21 11:38 Dose: 100 mls/hr Documented by: [id number] Pantoprazole Sodium 40 mg/ (Syringe) 10 mls @ 5 mls/min IV BID MIRA Stop: 06/29/21 20:59 Last Admin: 05/30/21 20:12 Dose: 5 mls/min Documented by: [id number] Discontinued Medications Pantoprazole Sodium 40 mg/ (Syringe) 10 mls @ 5 mls/min IV NOW ONE Stop: 05/30/21 06:13 Last Admin: 05/30/21 07:03 Dose: 5 mls/min Documented by: [id number] Pantoprazole Sodium (Protonix Bolus/Drip) 0 mls @ 1 mls/hr IV ONE STA Stop: 05/30/21 08:39 Last Admin: 05/30/21 09:57 Dose: Not Given Documented by: [id number] Pantoprazole Sodium 40 mg/ (Dextrose) 100 mls @ 20 mls/hr IV Q5H MIRA Stop: 06/29/21 09:29 Last Admin: 05/30/21 09:57 Dose: Not Given Documented by: [id number] Pantoprazole Sodium 40 mg/ (Dextrose) 100 mls @ 20 mls/hr IV Q5H MIRA Stop: 06/29/21 09:51 Last Admin: 05/30/21 16:42 Dose: Not Given Documented by: [id number] Infusion: 05/30/21 16:41 Dose: 0 mg/hr, 0 mls/hr Documented by: [id number] Infusion: 05/30/21 12:48 Dose: 8 mg/hr, 20 mls/hr Documented by: [id number] Infusion: 05/30/21 12:28 Dose: 0 mg/hr, 0 mls/hr Documented by: [id number] Admin: 05/30/21 10:02 Dose: 8 mg/hr, 20 mls/hr Documented by: [id number] Pantoprazole Sodium 80 mg/ (Dextrose) 120 mls @ 400 mls/hr IV NOW ONE Stop: 05/30/21 10:32 Last Infusion: 05/30/21 12:48 Dose: 0 mls/hr Documented by: [id number] Admin: 05/30/21 12:28 Dose: 400 mls/hr Documented by: [id number] Ioversol (Optiray 320 100ml) 94 ml IV ONCE ONE Stop: 05/30/21 07:14 Last Admin: 05/30/21 07:14 Dose: 94 ml Documented by: [id number] Lidocaine HCl (Lidocaine 2% 2 Ml Vial/Amp(20mg/Ml)) Confirm Administered Dose 4 ml INFIL .STK-MED ONE Stop: 05/30/21 14:46 Last Admin: 05/30/21 16:08 Dose: Not Given Documented by: [id number] Metoclopramide HCl (Metoclopramide Hcl Inj 5 Mg/Ml 2 Ml Vial) 10 mg IV ONE ONE Stop: 05/30/21 11:46 Last Admin: 05/30/21 13:13 Dose: 10 mg Documented by: [id number] Phenylephrine HCl (Phenylephrine 100mcg/Ml 5ml Syr) Confirm Administered Dose 100 mcg .ROUTE .STK-MED ONE Stop: 05/30/21 14:46 Last Admin: 05/30/21 16:09 Dose: Not Given Documented by: [id number] Propofol (Propofol Iv Emulsion 10 Mg/Ml 20 Ml Vial) Confirm Administered Dose 400 mg IV .STK-MED ONE Stop: 05/30/21 14:46 Last Admin: 05/30/21 16:09 Dose: Not Given Documented by: [id number] Critical Care Time Critical Care Time: Yes Total Critical Care Time: 35 Critical care of 35 min performed to assess and manage high likelihood of life- threatening GI bleed and hypotension, involving labs and imaging performed with assessment to evaluate GI bleed and hypotension diagnosis with frequent reassessment. This time includes bedside time, treatment discussions with patient/family/consultants, documentation time and excludes procedure time. Medical Decision Making Differential Diagnosis Differential diagnosis includes etiologies such as diverticulosis, AVM, coagulopathy, colitis, inflammatory bowel disease, malignancy, Ebony-Ford tear, esophagitis, peptic ulcer disease, variceal bleed, gastritis, epistaxis, fissure, hemorrhoids, as well as others were entertained. Medical Records Attestation: I reviewed the patient's medical records. Home Medications Current Medication List: was personally reviewed by me Laboratory Data Attestation: I reviewed the patient's lab results. Result diagrams: 05/30/21 16:45 05/30/21 06:13 Lab Results 05/30/21 05/30/21 05/30/21 Range/Units 06:13 06:13 06:13 WBC 9.07 (4.8-10.8) K/uL RBC 2.40 L (4.2-5.4) M/uL Hgb 7.6 L (12.0-16.0) g/dL Hct 22.5 L (37-47) % MCV 93.8 (80-100) fL MCH 31.7 (25-34) pg MCHC 33.8 (32-36) g/dL RDW Std Deviation 46.8 H (36.4-46.3) fL RDW Coeff of Jeannette 13.5 (11.5-14.5) % Plt Count 212 (130-400) K/uL MPV 8.9 (7.4-10.4) fL Immature Gran % (Auto) 0.3 % Neut % (Auto) 81.7 % Lymph % (Auto) 7.8 % Wallace % (Auto) 9.4 % Eos % (Auto) 0.7 % Baso % (Auto) 0.1 % Neut # (Auto) 7.41 H (1.4-6.5) K/uL Lymph # (Auto) 0.71 L (1.2-3.4) K/uL Wallace # (Auto) 0.85 H (0.11-0.59) K/uL Eos # (Auto) 0.06 (0-0.5) K/uL Baso # (Auto) 0.01 (0-0.2) K/uL Immature Gran # (Auto) 0.03 H (0.00-0.02) K/uL Polychromasia 1+ PT 12.1 H (9.0-12.0) Seconds INR 1.1 (0.9-1.1) Sodium (136-145) mmol/L Potassium (3.5-5.1) mmol/L Chloride (98-107) mmol/L Carbon Dioxide (21-32) mmol/L Anion Gap (3-11) BUN (6-23) mg/dl Creatinine (0.6-1.2) mg/dl Est Cr Clr Drug Dosing Est GFR ( Amer) ml/min Est GFR (Non-Af Amer) ml/min BUN/Creatinine Ratio (10-20) Glucose (70-99(Fasting)) mg/dl Calcium (8.5-10.1) mg/dl Magnesium (1.7-2.4) mg/dl Total Bilirubin (0.2-1.0) mg/dl AST (13-39) U/L ALT (7-52) U/L Alkaline Phosphatase (34-104) U/L Troponin I (0-0.04) ng/ml B-Natriuretic Peptide (0-100) pg/ml Total Protein (6.0-8.3) gm/dl Albumin (3.4-5.0) gm/dl Globulin (2.5-4.0) gm/dl Albumin/Globulin Ratio (0.9-2) Lipase (11-82) U/L SARS-CoV-2, RNA, NAAT (NEGATIVE) Blood Type A Positive Antibody Screen NEGATIVE Crossmatch See Detail 05/30/21 05/30/21 05/30/21 Range/Units 06:13 06:46 07:54 WBC (4.8-10.8) K/uL RBC (4.2-5.4) M/uL Hgb (12.0-16.0) g/dL Hct (37-47) % MCV (80-100) fL MCH (25-34) pg MCHC (32-36) g/dL RDW Std Deviation (36.4-46.3) fL RDW Coeff of Jeannette (11.5-14.5) % Plt Count (130-400) K/uL MPV (7.4-10.4) fL Immature Gran % (Auto) % Neut % (Auto) % Lymph % (Auto) % Wallace % (Auto) % Eos % (Auto) % Baso % (Auto) % Neut # (Auto) (1.4-6.5) K/uL Lymph # (Auto) (1.2-3.4) K/uL Wallace # (Auto) (0.11-0.59) K/uL Eos # (Auto) (0-0.5) K/uL Baso # (Auto) (0-0.2) K/uL Immature Gran # (Auto) (0.00-0.02) K/uL Polychromasia PT (9.0-12.0) Seconds INR (0.9-1.1) Sodium 139 (136-145) mmol/L Potassium 3.8 (3.5-5.1) mmol/L Chloride 109 H (98-107) mmol/L Carbon Dioxide 23 (21-32) mmol/L Anion Gap 7 (3-11) BUN 21 (6-23) mg/dl Creatinine 0.73 (0.6-1.2) mg/dl Est Cr Clr Drug Dosing Not Reportable Est GFR ( Amer) 109.0 ml/min Est GFR (Non-Af Amer) 94.0 ml/min BUN/Creatinine Ratio 28.8 H (10-20) Glucose 137 H (70-99(Fasting)) mg/dl Calcium 7.5 L (8.5-10.1) mg/dl Magnesium 1.7 (1.7-2.4) mg/dl Total Bilirubin 1.0 (0.2-1.0) mg/dl AST 39 (13-39) U/L ALT 28 (7-52) U/L Alkaline Phosphatase 62 (34-104) U/L Troponin I 0.03 (0-0.04) ng/ml B-Natriuretic Peptide 266 H (0-100) pg/ml Total Protein 5.3 L (6.0-8.3) gm/dl Albumin 2.8 L (3.4-5.0) gm/dl Globulin 2.5 (2.5-4.0) gm/dl Albumin/Globulin Ratio 1.1 (0.9-2) Lipase 36 (11-82) U/L SARS-CoV-2, RNA, NAAT NEGATIVE (NEGATIVE) Blood Type Antibody Screen Crossmatch Imaging Data Radiologist's Impression: Abdomen/Pelvis CT 05/30/21 06:12 CT SCAN OF THE ABDOMEN AND PELVIS WITH IV CONTRAST CLINICAL HISTORY: GI bleeding. COMPARISON STUDY: No priors. TECHNIQUE: Following the IV administration of 94 cc of Optiray 320, CT scan of the abdomen and pelvis is performed from the lung bases to the proximal femora. Images are reviewed in the axial, sagittal, and coronal planes. IV contrast was administered without complication. A dose lowering technique was utilized adhering to the principles of ALARA. CT DOSE: 272.87 mGy.cm FINDINGS: Lung bases: The heart is normal in size and without pericardial effusion. The lung bases are clear noting mild bibasilar atelectasis. Liver: The contrast-enhanced liver is normal in size, contour, and attenuation. There is no intrahepatic biliary ductal dilatation. The hepatic veins and portal veins are patent. There are numerous hepatic cysts which measure up to 2.8 cm. Gallbladder: Unremarkable. Spleen: Normal in size and attenuation. Pancreas: A 9 mm simple cystic lesion in the pancreatic head as seen on image #119. The pancreas is otherwise normal in appearance. Adrenal glands: Unremarkable. Kidneys: The contrast enhanced kidneys are normal in size and without hydronephrosis. The kidneys enhance symmetrically. There are 2 subcentimeter cortical hypodensities in the left kidney. These likely represent cysts but are too small for definitive characterization. Abdominal vasculature: The abdominal aorta is normal in course and caliber. Bowel: There is no bowel obstruction. The appendix is well-visualized and normal. Peritoneum: There is no intraperitoneal free air or abdominal ascites. There is a small fat-containing umbilical hernia. Lymphadenopathy: None. Pelvic viscera: The bladder wall appears circumferentially thickened. The uterus is normal as visualized noting an intrauterine device place. There are bilateral ovarian follicles. A dominant follicle on the left measures up to 2.5 cm. Skeletal structures: No lytic or blastic lesions are seen. IMPRESSION: 1. The bladder wall appears circumferentially thickened. Correlate with clinical findings and urinalysis. 2. A 9 mm simple cystic lesion in the pancreatic head likely represents a small sidebranch IPMN. Consider nonemergent GI follow-up. 3. Additional findings as above. ACT 112: Negative or not required by law. Electronically signed by: Curtis Carrion M.D. 05/30/2021 7:34 AM Chest X-Ray 05/30/21 06:12 XR chest 1V portable CLINICAL HISTORY: syncope. Evaluate cardiopulmonary status COMPARISON STUDY: 05/25/2021 TECHNIQUE: 1 view of the chest FINDINGS: Single frontal view of the chest demonstrates the cardiomediastinal silhouette to be within normal limits. The lungs are clear of alveolar opacities. There is no evidence for pleural effusion. There is no evidence for vascular congestion. There is no acute osseous pathology. IMPRESSION: 1. No acute cardiopulmonary disease. ACT 112: Negative or not required by law. Electronically signed by: Seven Juarez M.D. 05/30/2021 7:03 AM ECG Data Attestation: I personally reviewed and interpreted this ECG as follows: Indication: + vomiting and + weakness Rate (beats per minute): 85 Rhythm: + normal sinus ECG Intervals/blocks: + Normal QRS and + Prolonged QT ECG [place]: + Normal ECG ST segments: + Nonspecific ST abnormalities MDM Narrative This is a 55-year-old female who presents after acute GI bleed with vomiting and near syncope at home. Patient initially hypotensive for EMS although was improving with IV fluid rehydration. Patient was afebrile. Patient still mildly nauseated though denied abdominal pain. Patient was mildly ill-appearing on arrival. Labs drawn and sent and patient found to have significant drop in her H&H compared to fall of last year. No prior history of GI bleeds. No use of antiplatelet or anticoagulation. No history of alcohol abuse or cirrhosis. No prior EGD. Patient's other labs reassuring, no significantly elevated BUN. I suspect patient likely with abrupt bleeding from one of her hereditary telangiectasias likely in the esophagus, stomach, or duodenum. Patient was given gentle IV fluid rehydration here as she was recently evaluated for possible pulmonary edema by cardiology and started on furosemide. Patient did remain hemodynamically stable while in the ER. She was kept n.p.o. as a precaution. Case discussed with hospitalist for additional evaluation and management. No evidence of acute GI bleed or other acute pathology on CT imaging. Patient reevaluated and reexamined multiple times while in the emergency room. An order was placed for continuous cardiac monitoring. The monitor shows a rate of 96__ with _normal sinus__ rhythm. Impression & Plan GI bleed, Anemia, Hereditary benign telangiectasia, Dizziness Discharge Plan Visit Data Chief Complaint: Vomiting Stated Complaint: BLOODY VOMITING AND DIARRHEA ED Provider: Suzette Hayes Discharge Problem: GI bleed, Anemia, Hereditary benign telangiectasia, Dizziness Patient Disposition: Admitted As Inpatient Discharge Instructions Interventions: ED Discharge Assessment Last Done: 05/30/21 09:10 Discharge Problem: GI bleed Qualifiers: GI bleed type/associated pathology: unspecified gastrointestinal hemorrhage type Qualified Code(s): K92.2 - Gastrointestinal hemorrhage, unspecified Anemia Qualifiers: Anemia type: other cause Other causes of anemia: acute posthemorrhagic Qualified Code(s): D62 - Acute posthemorrhagic anemia
[2021-05-30] MEDS: SODIUM CHLORIDE 0.9% 1000ML 1,000 ML IV SCH ×3 (06:28→20:10)
[2021-05-30 06:41] LABS: Basophils # (auto) 0.01 K/uL (0-0.2); Basophils % (auto) 0.1 %; Eosinophils # (auto) 0.06 K/uL (0-0.5); Eosinophils % (auto) 0.7 %; Hematocrit (blood only) 22.5 % (37-47); Hemoglobin 7.6 g/dL (12.0-16.0); Immature Granulocytes # (auto) 0.03 K/uL (0.00-0.02); Immature Granulocytes % (auto) 0.3 %; Lymphocytes # (auto) 0.71 K/uL (1.2-3.4); Lymphocytes % (auto) 7.8 %; Mean Corpuscular Hemoglobin 31.7 pg (25-34); Mean Corpuscular Hgb Conc 33.8 g/dL (32-36); Mean Corpuscular Volume 93.8 fL (80-100); Mean Platelet Volume 8.9 fL (7.4-10.4); Monocytes # (auto) 0.85 K/uL (0.11-0.59); Monocytes % (auto) 9.4 %; Neutrophils # (auto) 7.41 K/uL (1.4-6.5); Neutrophils % (auto) 81.7 %; Platelet Count 212 K/uL (130-400); RDW Coefficient of Variation 13.5 % (11.5-14.5); RDW Standard Deviation 46.8 fL (36.4-46.3); White Blood Count 9.07 K/uL (4.8-10.8)
[2021-05-30 06:56] LABS: INR 1.1 (0.9-1.1); Prothrombin Time 12.1 Seconds (9.0-12.0)
[2021-05-30 07:01] LABS: Polychromasia 1+; Troponin I 0.03 ng/ml (0-0.04)
[2021-05-30 07:02] LABS: Alanine Aminotransferase 28 U/L (7-52); Albumin Globulin Ratio 1.1 (0.9-2); Albumin Level 2.8 gm/dl (3.4-5.0); Alkaline Phosphatase 62 U/L (34-104); Anion Gap 7 (3-11); Aspartate Aminotransferase 39 U/L (13-39); BUN Creatinine Ratio 28.8 (10-20); Blood Urea Nitrogen 21 mg/dl (6-23); Calcium 7.5 mg/dl (8.5-10.1); Carbon Dioxide 23 mmol/L (21-32); Chloride 109 mmol/L (98-107); Globulin 2.5 gm/dl (2.5-4.0); Glucose 137 mg/dl (70-99(Fasting)); Lipase 36 U/L (11-82); Magnesium 1.7 mg/dl (1.7-2.4); Potassium 3.8 mmol/L (3.5-5.1); Sodium 139 mmol/L (136-145); Total Protein 5.3 gm/dl (6.0-8.3)
--- NOTE | 2021-05-30 07:04 | XRay Report ---
XR chest 1V portable CLINICAL HISTORY: syncope. Evaluate cardiopulmonary status COMPARISON STUDY: 05/25/2021 TECHNIQUE: 1 view of the chest FINDINGS: Single frontal view of the chest demonstrates the cardiomediastinal silhouette to be within normal li mits. The lungs are clear of alveolar opacities. There is no evidence for pleural effusion. There is no evidence for vascular congestion. There is no acute osseous pathology. IMPRESSION: 1. No acute cardiopulmonary disease. ACT 112: Negative or not required by law. Electronically signed by: Seven Juarez M.D. 05/30/2021 7:03 AM
[2021-05-30] MEDS ORDERED: OPTIRAY 320 100ml IV ONE (07:13)
--- NOTE | 2021-05-30 07:36 | CT Scan Report ---
CT SCAN OF THE ABDOMEN AND PELVIS WITH IV CONTRAST CLINICAL HISTORY: GI bleeding. COMPARISON STUDY: No priors. TECHNIQUE: Following the IV administration of 94 cc of Optiray 320, CT scan of the abdomen and pelvi s is performed from the lung bases to the proximal femora. Images are reviewed in the axial, sagittal , and coronal planes. IV contrast was administered without complication. A dose lowering technique wa s utilized adhering to the principles of ALARA. CT DOSE: 272.87 mGy.cm FINDINGS: Lung bases: The heart is normal in size and without pericardial effusion. The lung bases are clear no ting mild bibasilar atelectasis. Liver: The contrast-enhanced liver is normal in size, contour, and attenuation. There is no intrahepa tic biliary ductal dilatation. The hepatic veins and portal veins are patent. There are numerous hepa tic cysts which measure up to 2.8 cm. Gallbladder: Unremarkable. Spleen: Normal in size and attenuation. Pancreas: A 9 mm simple cystic lesion in the pancreatic head as seen on image #119. The pancreas is o therwise normal in appearance. Adrenal glands: Unremarkable. Kidneys: The contrast enhanced kidneys are normal in size and without hydronephrosis. The kidneys enh ance symmetrically. There are 2 subcentimeter cortical hypodensities in the left kidney. These likely represent cysts but are too small for definitive characterization. Abdominal vasculature: The abdominal aorta is normal in course and caliber. Bowel: There is no bowel obstruction. The appendix is well-visualized and normal. Peritoneum: There is no intraperitoneal free air or abdominal ascites. There is a small fat-containin g umbilical hernia. Lymphadenopathy: None. Pelvic viscera: The bladder wall appears circumferentially thickened. The uterus is normal as visuali zed noting an intrauterine device place. There are bilateral ovarian follicles. A dominant follicle o n the left measures up to 2.5 cm. Skeletal structures: No lytic or blastic lesions are seen. IMPRESSION: 1. The bladder wall appears circumferentially thickened. Correlate with clinical findings and urinaly sis. 2. A 9 mm simple cystic lesion in the pancreatic head likely represents a small sidebranch IPMN. Cons ider nonemergent GI follow-up. 3. Additional findings as above. ACT 112: Negative or not required by law. Electronically signed by: Curtis Carrion M.D. 05/30/2021 7:34 AM
[2021-05-30] MEDS ORDERED: PANTOPRAZOLE BOLUS/DRIP 1 EA IV STA (08:38)
[2021-05-30] MEDS ORDERED: PANTOprazole 40 MG in DEXTROSE 5% 100 ML IV SCH (09:30)
[2021-05-30] MEDS ORDERED: ONDANSETRON INJ 2 MG/ML 2 ML VIAL IV PRN (09:52)
[2021-05-30] MEDS ORDERED: METOCLOPRAMIDE HCL INJ 5 MG/ML 2 ML VIAL IV ONE ×2 (10:00→11:45)
[2021-05-30] MEDS: PANTOprazole 40 MG in DEXTROSE 5% 100 ML IV SCH ×2 (10:02→16:42)
[2021-05-30] MEDS ORDERED: PANTOprazole 80 MG in DEXTROSE 5% 100 ML IV ONE (10:15)
[2021-05-30] MEDS: NORMOSOL-R 1,000 ML IV SCH ×2 (11:38→22:44)
[2021-05-30] MEDS ORDERED: SODIUM CHLORIDE 0.9% 250 ML IV PRN ×3 (12:04→13:46)
--- NOTE | 2021-05-30 13:25 | Anesthesiology Consultation ---
Date of Service May 30, 2021 Assessment & Plan Chart Review Chart Review: Acceptable Risk for Surgery Consults Requested none ASA [id number] Proposed Anesthesia Anesthesia Type: MAC Risk / Benefits Reviewed With: PT / POA / Parent / Guardian, Accepts Plan and Informed Consent Obtained Additional Comments: possible GETA depending on current hematemesis. History Surgery Operation Date: 05/30/21 16:30 Proposed Procedures p Esophagogastroduodenoscopy Dr. Graves - Justo Graves MD EGD Dr Graves Height/Weight Height: 5 ft Weight: 59.1 kg Allergies Allergy/AdvReac Type Severity Reaction Status Date / Time animal dander Allergy Intermediate SNEEZING, Verified 05/30/21 13:44 CONGESTION Medications Home Medications Medication Instructions Recorded Confirmed Last Taken albuterol sulfate 90 mcg/actuation 2 puff INHALATION DIRECTED PRN 10/23/20 05/30/21 05/23/21 aerosol inhaler fluticasone 250 mcg-salmeterol 50 1 inh INHALATION BID PRN 10/23/20 05/30/21 05/23/21 mcg/dose blistr powdr for inhalation (Advair Diskus) levonorgestrel 20 mcg/24 hours (7 20 mcg INTRAUTERINE CONTINOUS 10/23/20 05/30/21 05/30/21 yrs) 52 mg intrauterine device (Mirena) cholecalciferol (vitamin D3) 25 25 mcg PO QAM 05/30/21 05/30/21 05/29/21 mcg (1,000 unit) capsule (Vitamin D3) colchicine 0.6 mg tablet 0.6 mg PO BID 05/30/21 05/30/21 05/29/21 furosemide 20 mg tablet 20 mg PO QAM 05/30/21 05/30/21 05/29/21 40 mg nadolol 20 mg tablet 10 mg PO BID 05/30/21 05/30/21 05/29/21 Active Medications Generic Name Dose Route Start Last Admin Trade Name Freq PRN Reason Stop Dose Admin Sodium Chloride 1,000 mls @ 125 mls/hr 05/30/21 06:15 05/30/21 11:09 Nss 1000ml IV 06/29/21 06:14 125 mls/hr .Q8H MIRA Administration Parenteral Electrolytes 1,000 mls @ 100 mls/hr 05/30/21 09:52 05/30/21 11:38 Plasma-Lyte A IV 06/29/21 09:51 100 mls/hr .Q10H MIRA Administration Pantoprazole Sodium 40 mg/ 100 mls @ 20 mls/hr 05/30/21 09:52 05/30/21 12:48 Dextrose IV 06/29/21 09:51 8 mg/hr Q5H MIRA 20 mls/hr Infusion 8 MG/HR NPO Date Last Intake of Fluids: 05/30/21 Time Last Intake of Fluids: 04:00 Date Last Intake of Solids: 05/30/21 Time Last Intake of Solids: 00:01 Past Medical History Medical History Asthma Bradycardia 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 None since left vent outflow track obstruction Exercise / Class Metabolic Activity III < 4 Walking/Shop/Light housework baseline sob Past Surgical History Surgical History Hx of breast lump removal benign No pertinent past surgical history Past Anesthesia History No Hx of Anesthesia Complications and No Family Hx of Anesthesia Complications History of PONV No Hx of PONV and No Hx of Motion Sickness Social History Smoking Status: Never smoker Hx Alcohol Use: Yes alcohol intake frequency: holidays/special occasions only Hx Substance Use: No substance use type: does not use Review of Systems dizziness with current acute blood loss Physical Exam Vital Signs Last Vital Signs Temp 36.7 C 05/30/21 09:50 Pulse 102 H 05/30/21 10:20 Resp 16 05/30/21 09:50 BP 81/55 L 05/30/21 09:50 Pulse Ox 100 05/30/21 09:52 ENMT Mouth: no TMJ abnormality Thyromental Distance: > or= 3.5 Finger Breadths Mallampati Class: II no blood staining in aw Neck normal visual inspection and trachea midline; neck extension not limited Respiratory normal respiratory effort Auscultation: lungs clear to auscultation bilaterally Cardiovascular Rate/Rhythm: regular rate and regular rhythm Heart Sounds: + murmur Musculoskeletal Spine: normal cervical ROM Extremities: full ROM of extremities Neurologic moves all extremities Psychiatric Orientation: alert and oriented x 3 Testing Laboratory Results 05/30/21 10:54 05/30/21 06:13 PT 12.1 Seconds (9.0-12.0) H 05/30/21 06:13 INR 1.1 (0.9-1.1) 05/30/21 06:13 Blood Type A Positive 05/30/21 06:13 Antibody Screen NEGATIVE 05/30/21 06:13 Electrocardiogram Date: 05/30/21 Findings: + NSR @ (85) [id number] Chest X-Ray Date: 05/30/21 Findings: + NAD
--- NOTE | 2021-05-30 14:07 | Gastrointestinal Consultation ---
Date of Consultation May 30, 2021 Assessment & Plan (1) GI bleed: (2) Hematemesis: (3) Anemia: (4) Hereditary benign telangiectasia: in the setting of recent pericarditis diagnosis and hx hereditary telangiectasia, possible AVM vs. PUD or other etiology recs: NPO supportive care, IVFs protonix drip Proceed with EGD risks/benefits and procedure discussed with patient, who agrees to proceed transfuse PRBC Thank you for allowing me to participate in the care of this patient History of Present Illness Attending Physician: Jj Reddy MD History of Present Illness 55 yo female with recent diagnosis of possible pericarditis, ventricular outflow obstruction here with dizziness, hematemesis. She started vomiting a little over a week ago and over time becamer more fatigued and had dyspnea on exertion. Her patient care technician found fluid in the lungs and thought she might have pericarditis, she is on colchicine currently. This morning she was nauseous and dizzy and had hematemesis it appears and possible blood per rectum as well during an episode of incontinence. Hgb on admission was 7.6, last october was normal. BUN is normal, vitals noted to be hypotensive and tachycardic. CT A/P without liver disease. Has hx NSAID use but not recently, has been a year or so since she used them regularly. Has hx hereditary telangiectasia for which she has had nosebleeds and had to have that cauterized, never had hematochezia, hematemesis though. labs reviewed. albumin is low, normal INR. Allergies Allergy/AdvReac Type Severity Reaction Status Date / Time animal dander Allergy Intermediate SNEEZING, Verified 05/30/21 13:44 CONGESTION Home Medications Medication Instructions Recorded Confirmed Type albuterol sulfate 90 mcg/actuation 2 puff INHALATION DIRECTED PRN 10/23/20 05/30/21 History aerosol inhaler fluticasone 250 mcg-salmeterol 50 1 inh INHALATION BID PRN 10/23/20 05/30/21 History mcg/dose blistr powdr for inhalation (Advair Diskus) levonorgestrel 20 mcg/24 hours (7 20 mcg INTRAUTERINE CONTINOUS 10/23/20 05/30/21 History yrs) 52 mg intrauterine device (Mirena) cholecalciferol (vitamin D3) 25 25 mcg PO QAM 05/30/21 05/30/21 History mcg (1,000 unit) capsule (Vitamin D3) colchicine 0.6 mg tablet 0.6 mg PO BID 05/30/21 05/30/21 History furosemide 20 mg tablet 20 mg PO QAM 05/30/21 05/30/21 History nadolol 20 mg tablet 10 mg PO BID 05/30/21 05/30/21 History Patient History Medical History Asthma Bradycardia 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 Dyspnea HTN (hypertension) Hx of hereditary hemorrhagic telangiectasia (HHT) Hx of primary hypertension No pertinent family history Surgical History Hx of breast lump removal benign No pertinent past surgical history Social History Smoking Status: Never smoker Hx Alcohol Use: Yes Hx Substance Use: No Preferred Language: B[place] Communication Ability: Effective Boat Master Required: No Beliefs That Will Affect Care: None Current Living Situation: Spouse and Family Current Living Situation Comment: and 2 children Feels Safe at Home: Yes Safety Concerns: Feels Safe At This Time Assistive Devices: Glasses Assistive Devices Comment: reading glasses, mouth guard at night Review of Systems Constitutional: no fever, no chills and no weight loss Eyes: as per Subjective / HPI Ear, Nose, Mouth, Throat: as per Subjective / HPI Respiratory: no dyspnea and no dyspnea on exertion Cardiovascular: no chest pain and no palpitations Gastrointestinal: as per Subjective / HPI Musculoskeletal: no joint pain and no swelling Integumentary: no rash and no lesions Neurologic: no numbness and no paresthesia Psychiatric: no depression and no anxiety Endocrine: no fatigue Hematologic / Lymphatic: no easy bleeding and no easy bruising Physical Exam Constitutional: WD/WN, vitals as above Eyes: EOM intact bilaterally Neck: normal visual inspection Respiratory: normal respiratory effort, lungs clear to auscultation Cardiovascular: Rate/Rhythm: regular rhythm and + tachycardic Heart Sounds: normal S1, normal S2 and + murmur Gastrointestinal (Abdomen): Inspection/Auscultation: abdomen normal to inspection; abdomen not distended Percussion/Palpation: abdomen soft; abdomen nontender and no hepatosplenomegaly Musculoskeletal: Extremities: no cyanosis Gait: normal gait Skin: no rashes, warm and dry Neurologic: moves all extremities Psychiatric: A+Ox3, euthymic affect Results & Data ([facility]) Vital Signs (Past 12 Hours) Vital Signs Temp Pulse Pulse Resp BP BP BP 05/30/21 13:49 37.1 C 100 H 16 77/57 L 05/30/21 10:20 102 H 05/30/21 09:52 05/30/21 09:50 36.7 C 98 H 16 81/55 L 05/30/21 09:00 90 18 92/58 L 05/30/21 07:13 87 18 108/73 05/30/21 06:20 87 16 05/30/21 06:10 86 18 05/30/21 06:08 83 18 05/30/21 06:02 36.6 C 85 18 107/61 05/30/21 06:00 91/59 L Pulse Ox Pulse Ox 05/30/21 13:49 100 05/30/21 10:20 05/30/21 09:52 100 05/30/21 09:50 100 05/30/21 09:00 97 05/30/21 07:13 97 05/30/21 06:20 98 05/30/21 06:10 05/30/21 06:08 05/30/21 06:02 100 05/30/21 06:00 PG Care Time/CCT Total # of Minutes Spent Total Time Spent with Patient: Total time spent is greater than 50% in coordination of care (as documented) at patient's floor/unit and/or counseling patient: Coding Level of Care Code 59120 Inpt Consult Level 4 Diagnoses GI bleed K92.2 Hematemesis K92.0 Anemia D64.9 Hereditary benign telangiectasia I78.0
[2021-05-30] MEDS ORDERED: PROPOFOL IV EMULSION 10 MG/ML 20 ML VIAL IV ONE (14:45)
[2021-05-30] MEDS ORDERED: PHENYLEPHRINE 100MCG/ML 5ML SYR ONE (14:45)
[2021-05-30] MEDS ORDERED: LIDOCAINE 2% 2 ML VIAL/AMP(20MG/ML) INFIL ONE (14:45)
--- NOTE | 2021-05-30 14:59 | GI REPORT ---
Patient Name: Azucena Laura Procedure Date: 05/30/2021 1:39 PM Date of : 1965 Admit Type: Inpatient Age: 55 Gender: Female Attending MD: Justo Graves MD Procedure: Small bowel enteroscopy Providers: Justo Graves MD Referring MD: Jj Reddy Indications: Iron deficiency anemia secondary to chronic blood loss, Hematemesis Medicines: Monitored Anesthesia Care Complications: No immediate complications. Estimated blood loss: None. Estimated Blood Loss: Estimated blood loss: none. Procedure: Pre-Anesthesia Assessment: - Prior Anticoagulants: The patient has taken no previous anticoagulant or antiplatelet agents. - ASA Grade Assessment: III - A patient with severe systemic disease. After obtaining informed consent, the endoscope was passed under direct vision. Throughout the procedure, the patient's blood pressure, pulse, and oxygen saturations were monitored continuously. The Colonoscope was introduced through the mouth, and advanced to the third part of duodenum. After obtaining informed consent, the endoscope was passed under direct vision. Throughout the procedure, the patient's blood pressure, pulse, and oxygen saturations were monitored continuously.The upper GI endoscopy was accomplished without difficulty. The patient tolerated the procedure well. Findings: A non-bleeding Ebony-Ford tear with stigmata of recent bleeding was found at the GE junction. Estimated blood loss: none. A few small angioectasias with no bleeding were found in the gastric body. Coagulation for bleeding prevention using argon plasma at 1.2 liters/minute and 35 cornell was successful. Estimated blood loss: none. Multiple small angioectasias with bleeding on contact were found in the second portion of the duodenum and in the third portion of the duodenum. Coagulation for bleeding prevention using argon plasma at 1.2 liters/minute and 30 cornell was successful. Estimated blood loss: none. no evidence of ulcers or blood in the stomach. no evidence of ulcers in the duodenum. Impression: - Ebony-Ford tear. - A few non-bleeding angioectasias in the stomach. Treated with argon plasma coagulation (APC). - Multiple angioectasias in the duodenum. Treated with argon plasma coagulation (APC). - No specimens collected. Recommendation: - [facility]. - NPO today. can advance to clear liquid diet tomorrow morning if stable -antiemetics prn, supportive care, IVFs -suspect her blood loss anemia is chronic from AVMs, would consider obtaining a capsule endoscopy as an outpatient and possibly an outpatient colonoscopy -can d/c protonix drip and change to protonix daily for now -avoid NSAIDS -if rebleeds would recommend a tagged RBC scan to further evaluate. Justo Graevs MD 05/30/2021 2:58:41 PM This report has been signed electronically. Note Initiated On: 05/30/2021 1:39 PM Number of Addenda: 0 I attest to the content of the Intraoperative Record and orders documented therein, exceptions below {[id number]}
--- NOTE | 2021-05-30 15:11 | Anesthesiology Progress Note ---
Date of Service May 30, 2021 Anesthesia Post Procedure Vital Signs Vital Signs: Temp Pulse Pulse Resp BP BP BP 05/30/21 14:59 93 H 16 105/65 05/30/21 13:49 37.1 C 100 H 16 77/57 L 05/30/21 10:20 102 H 05/30/21 09:52 05/30/21 09:50 36.7 C 98 H 16 81/55 L 05/30/21 09:00 90 18 92/58 L 05/30/21 07:13 87 18 108/73 05/30/21 06:20 87 16 05/30/21 06:10 86 18 05/30/21 06:08 83 18 05/30/21 06:02 36.6 C 85 18 107/61 05/30/21 06:00 91/59 L Pulse Ox Pulse Ox 05/30/21 14:59 100 05/30/21 13:49 100 05/30/21 10:20 05/30/21 09:52 100 05/30/21 09:50 100 05/30/21 09:00 97 05/30/21 07:13 97 05/30/21 06:20 98 05/30/21 06:10 05/30/21 06:08 05/30/21 06:02 100 05/30/21 06:00 Transfer of Care Handoff Completed per policy Notes Mental Status: alert / awake / arousable Patient Amnestic to Procedure: Yes Nausea / Vomiting: adequately controlled Pain: adequately controlled Airway Patency, RR, SpO2: stable & adequate BP & HR: stable & adequate Hydration State: stable & adequate Anesthetic Complications: no major complications apparent and Pt Satisfied with anesthetic care Notes: given 2 units pRBC intraop with BP improvement. No anes complications.
--- NOTE | 2021-05-30 16:30 | History & Physical Report ---
Date of Service May 30, 2021 Assessment & Plan (1) Anemia: Plan: Patient has acute blood loss anemia but lack of melena or rising BUN this year appears to be in all upper GI. Likely this is a Ebony-Ford tear however her hereditary hemorrhagic telangiectasia likely may play a role. Should be transfused packed red blood cells kept n.p.o. placed on Protonix GI consultation for upper endoscopy will be undertaken (2) Hereditary benign telangiectasia: (3) HTN (hypertension): Plan: Patient previously on nadolol her blood pressure is low subsequently this will be held at this time as well as her diuretic. (4) Dynamic left ventricular outflow obstruction: Plan: Patient follows Dr. Diez for dynamic left ventricular outflow tract obstruction she does have a murmur on examination. Caution with volume expansion however hypovolemia may augment her flow dynamics being poor she received crystalloid solution in the ER 2 units of blood during her procedure and will be maintained on an additional infusion of fluids overnight Admission and Anticipated Discharge Date Admission Date: May 30, 2021 History of Present Illness Primary Care Provider: Ban Dos Santos PA-C Patient presents to the ER via EMS for hematemesis. Reportedly the patient been sick for a week to 10 days after initiating colchicine therapy from her plaster tender for possible pericarditis. Patient adamantly denies taking any nonsteroidals ibuprofen Aleve etc. She is not a heavy alcohol user caffeine user. She is never had a GI bleed denies any melena. Vomitus was bright red blood. Does have history of hereditary telangiectasia low to her knowledge has not had much problems from them with regard to nosebleeds or other bleeding etc. In the ER she is hemodynamically stable she is no melena her BUN is elevated and she has anemia with a hemoglobin in the 7 g range. She is consented for blood kept n.p.o. and will have a likely endoscopy Allergies Allergy/AdvReac Type Severity Reaction Status Date / Time animal dander Allergy Intermediate SNEEZING, Verified 05/30/21 13:44 CONGESTION Home Medications Medication Instructions Recorded Confirmed Type albuterol sulfate 90 mcg/actuation 2 puff INHALATION DIRECTED PRN 10/23/20 05/30/21 History aerosol inhaler fluticasone 250 mcg-salmeterol 50 1 inh INHALATION BID PRN 10/23/20 05/30/21 History mcg/dose blistr powdr for inhalation (Advair Diskus) levonorgestrel 20 mcg/24 hours (7 20 mcg INTRAUTERINE CONTINOUS 10/23/20 05/30/21 History yrs) 52 mg intrauterine device (Mirena) cholecalciferol (vitamin D3) 25 25 mcg PO QAM 05/30/21 05/30/21 History mcg (1,000 unit) capsule (Vitamin D3) colchicine 0.6 mg tablet 0.6 mg PO BID 05/30/21 05/30/21 History furosemide 20 mg tablet 20 mg PO QAM 05/30/21 05/30/21 History nadolol 20 mg tablet 10 mg PO BID 05/30/21 05/30/21 History Past Med/Surg History Medical History (Updated 05/30/21 @ 14:14 by Justo Graves MD) Asthma Bradycardia 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 Dyspnea HTN (hypertension) Hx of hereditary hemorrhagic telangiectasia (HHT) Hx of primary hypertension No pertinent family history Surgical History Hx of breast lump removal benign No pertinent past surgical history Social History Smoking Status: Never smoker Hx Alcohol Use: Yes Hx Substance Use: No Preferred Language: Pashto Communication Ability: Effective Android Platform Developer Required: No Beliefs That Will Affect Care: None Current Living Situation: Spouse and Family Current Living Situation Comment: and 2 children Feels Safe at Home: Yes Safety Concerns: Feels Safe At This Time Assistive Devices: Glasses Assistive Devices Comment: reading glasses, mouth guard at night Review of Systems Review of Systems: Mild distress and fatigue no headache, no visual changes no speech or swallowing issues no chest pain, pressure or palpitations no shortness of breath, cough or wheezes no abdominal pain, mild and persistent nausea , vomiting of bright red blood no melena no dysuria, hematuria or frequency no focal joint pain or swelling no back pain, CVA tenderness or radicular pain no bruising, bleeding or rashes no focal signs of weakness or numbness or altered sensation no complaints of anxiety or depression.. Physical Exam Physical Exam: The patient appeared well nourished and normally developed. Vital signs as documented. Head exam is normocephalic atraumatic Neck is without JVD, thyromegaly, or carotid bruits. Lungs are clear to auscultation, no focal loss of breath sounds Cardiac exam, Rhythm is regular.. No murmurs, rubs or gallops. Abdominal exam reveals normal bowel sounds, soft non tender, no masses Extremities are nonedematous and both pedal pulses are present Neurologic exam is alert and oriented, no focal loss of strength or sensation Skin is without bruises or rashes Psychologically is without concerns for anxiety or depression.. Results & Data Results & Data ([facility]) Vital Signs (Past 12 Hours) Vital Signs Temp Pulse Pulse Resp BP BP BP 05/30/21 15:29 92 H 16 93/53 L 05/30/21 15:14 91 H 16 96/52 L 05/30/21 14:59 93 H 16 105/65 05/30/21 13:49 98.8 F 100 H 16 77/57 L 05/30/21 10:20 102 H 05/30/21 09:52 05/30/21 09:50 98.1 F 98 H 16 81/55 L 05/30/21 09:00 90 18 92/58 L 05/30/21 07:13 87 18 108/73 05/30/21 06:20 87 16 05/30/21 06:10 86 18 05/30/21 06:08 83 18 05/30/21 06:02 97.9 F 85 18 107/61 05/30/21 06:00 91/59 L Pulse Ox Pulse Ox 05/30/21 15:29 99 05/30/21 15:14 98 05/30/21 14:59 100 05/30/21 13:49 100 05/30/21 10:20 05/30/21 09:52 100 05/30/21 09:50 100 05/30/21 09:00 97 05/30/21 07:13 97 05/30/21 06:20 98 05/30/21 06:10 05/30/21 06:08 05/30/21 06:02 100 05/30/21 06:00 Diagnostic Findings Abdomen/Pelvis CT 05/30/21 06:12 CT SCAN OF THE ABDOMEN AND PELVIS WITH IV CONTRAST CLINICAL HISTORY: GI bleeding. COMPARISON STUDY: No priors. TECHNIQUE: Following the IV administration of 94 cc of Optiray 320, CT scan of the abdomen and pelvis is performed from the lung bases to the proximal femora. Images are reviewed in the axial, sagittal, and coronal planes. IV contrast was administered without complication. A dose lowering technique was utilized adhering to the principles of ALARA. CT DOSE: 272.87 mGy.cm FINDINGS: Lung bases: The heart is normal in size and without pericardial effusion. The lung bases are clear noting mild bibasilar atelectasis. Liver: The contrast-enhanced liver is normal in size, contour, and attenuation. There is no intrahepatic biliary ductal dilatation. The hepatic veins and portal veins are patent. There are numerous hepatic cysts which measure up to 2.8 cm. Gallbladder: Unremarkable. Spleen: Normal in size and attenuation. Pancreas: A 9 mm simple cystic lesion in the pancreatic head as seen on image #119. The pancreas is otherwise normal in appearance. Adrenal glands: Unremarkable. Kidneys: The contrast enhanced kidneys are normal in size and without hydronephrosis. The kidneys enhance symmetrically. There are 2 subcentimeter cortical hypodensities in the left kidney. These likely represent cysts but are too small for definitive characterization. Abdominal vasculature: The abdominal aorta is normal in course and caliber. Bowel: There is no bowel obstruction. The appendix is well-visualized and normal. Peritoneum: There is no intraperitoneal free air or abdominal ascites. There is a small fat-containing umbilical hernia. Lymphadenopathy: None. Pelvic viscera: The bladder wall appears circumferentially thickened. The uterus is normal as visualized noting an intrauterine device place. There are bilateral ovarian follicles. A dominant follicle on the left measures up to 2.5 cm. Skeletal structures: No lytic or blastic lesions are seen. IMPRESSION: 1. The bladder wall appears circumferentially thickened. Correlate with clinical findings and urinalysis. 2. A 9 mm simple cystic lesion in the pancreatic head likely represents a small sidebranch IPMN. Consider nonemergent GI follow-up. 3. Additional findings as above. ACT 112: Negative or not required by law. Electronically signed by: Curtis Carrion M.D. 05/30/2021 7:34 AM Chest X-Ray 05/30/21 06:12 XR chest 1V portable CLINICAL HISTORY: syncope. Evaluate cardiopulmonary status COMPARISON STUDY: 05/25/2021 TECHNIQUE: 1 view of the chest FINDINGS: Single frontal view of the chest demonstrates the cardiomediastinal silhouette to be within normal limits. The lungs are clear of alveolar opacities. There is no evidence for pleural effusion. There is no evidence for vascular congestion. There is no acute osseous pathology. IMPRESSION: 1. No acute cardiopulmonary disease. ACT 112: Negative or not required by law. Electronically signed by: Seven Juarez M.D. 05/30/2021 7:03 AM Code Status & VTE Plan VTE Prophylaxis Plan VTE Prophylaxis will be ordered: Yes PG Care Time/CCT Total # of Minutes Spent Total Time Spent with Patient: Total time spent is greater than 50% in coordination of care (as documented) at patient's floor/unit and/or counseling patient: Coding Level of Care Code 95372 Initial Inpt Care Lvl 3 Diagnoses Hereditary benign telangiectasia I78.0 Anemia D64.9 HTN (hypertension) I10 Dynamic left ventricular outflow obstruction I51.89
[2021-05-30] MEDS: PANTOprazole 40 MG in SYRINGE 0 ML IV SCH (20:12)
[2021-05-31] MEDS: SODIUM CHLORIDE 0.9% 1000ML 1,000 ML IV SCH (03:55)
--- NOTE | 2021-05-31 05:35 | Electrocardiogram Report ---
Test Reason : Blood Pressure : / mmHG Vent. Rate : 085 BPM Atrial Rate : 085 BPM P-R Int : 154 ms QRS Dur : 084 ms QT Int : 432 ms P-R-T Axes : 052 047 051 degrees QTc Int : 514 ms Normal sinus rhythm Left ventricular hypertrophy with repolarization abnormality Prolonged QT Abnormal ECG No previous ECGs available Confirmed by Andrew Leach ([id number]) on 05/31/2021 5:35:48 AM Referred By: REFERRED SELF Confirmed By:Andrew Leach
[2021-05-31] MEDS: FLUTICASONE/VILANTEROL 200/25MCG 14 PUFFS/INHALER INH PRN ×3 (05:44→19:28)
[2021-05-31 06:26] LABS: Hematocrit (blood only) 24.3 % (37-47); Mean Corpuscular Hemoglobin 30.3 pg (25-34); Mean Corpuscular Hgb Conc 32.9 g/dL (32-36); Mean Platelet Volume 8.9 fL (7.4-10.4); Platelet Count 159 K/uL (130-400); RDW Coefficient of Variation 16.1 % (11.5-14.5); RDW Standard Deviation 54.1 fL (36.4-46.3); Red Blood Count 2.64 M/uL (4.2-5.4)
[2021-05-31 07:07] LABS: BUN Creatinine Ratio 22.2 (10-20); Calcium 5.3 mg/dl (8.5-10.1); Est GFR (African American) 132.6 ml/min; Est GFR (Non-African American) 114.4 ml/min; Magnesium 1.4 mg/dl (1.7-2.4); Potassium 2.5 mmol/L (3.5-5.1)
[2021-05-31] MEDS: POTASSIUM CHLORIDE / WTR 10 MEQ/100 ML PLCT IV SCH ×3 (08:05→11:24)
[2021-05-31] MEDS: PANTOprazole 40 MG in SYRINGE 0 ML IV SCH ×2 (08:07→20:04)
--- NOTE | 2021-05-31 08:57 | Gastroenterology Progress Note ---
Date of Service May 31, 2021 Assessment & Plan (1) Hereditary benign telangiectasia: Plan: GI bleed: The patient had small bowel enteroscopy performed by Dr. Graves 05/30/2021. She had a Ebony-Jiang tear noted. She also had several nonbleeding angiectasia's in the stomach and duodenum which were treated with APC. Hemoglobin and hematocrit stable today. Continue Protonix and supportive care measures. Currently on clear liquid diet. Patient will require outpatient GI follow-up and likely a video capsule endoscopy. I will arrange this with our service. Hematemesis: Presented to the emergency department initially with hematemesis. No further hematemesis at this time. Anemia: Stable this morning. 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 Case reviewed with Dr. Gauthier. Please refer to supervising physician addendum for further recommendations. I have spent 40 minutes of discrete time performing the activities of this visit which include but are not limited to review of the medical record, obtaining a history, physical exam, and entering information in the electronic record. (2) Anemia: (3) Hematemesis: Admission and Anticipated Discharge Date Admission Date: May 30, 2021 Supervising Physician Co-Signing Physician Notes I have seen and examined the patient. I agree with note above by LOREE Capps except as noted below. HPI Pt denies abd pain. Tolerating liquid diet. 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 Forgot to talk with patient about this but will speak with her tomorrow. As the supervising physician, I , Juan Carlos Gauthier MD have spent minutes of discrete time performing the activities of this visit which include but not limited to review of the medical records, obtaining a history, physical exam and entering information in the electronic record. LOREE Capps has reported spending 40 minutes of discrete time with the activities of this visit. Subjective The patient is awake alert and oriented this morning sitting upright in bed and position of comfort. She is noting some mild shortness of breath. She feels this is related to not taking her cardiac medications. She has never been seen by GI in the past. She follows with primary care with [facility]. Denies any nausea or vomiting this morning. She is tolerating clear liquids well. She denies any abdominal pain. She states she woke yesterday morning with hematemesis between 4 and 5 AM. She has had no further hematemesis. She did have some diarrhea last night and reports dark stools. Reports colonoscopy at age 52. 04/18/2018: Colonoscopy to cecum with normal exam and repeat in 10 years. No specimens were collected. She is a lifetime non-smoker. She only consumes very minimal alcohol intake. Uses no recreational drugs including marijuana. 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 She is and has 2 children. She has a 13-year-old daughter and a 17-year-old son. Review of Systems Review of Systems: All systems reviewed & are unremarkable except as noted in Subjective Physical Exam Constitutional: WD/WN, vitals as above Respiratory: normal respiratory effort, lungs clear to auscultation Cardiovascular: Rate/Rhythm: regular rate and regular rhythm Gastrointestinal (Abdomen): Inspection/Auscultation: abdomen normal to inspection; abdomen not distended Percussion/Palpation: abdomen soft; abdomen nontender and no hepatosplenomegaly Psychiatric: A+Ox3, euthymic affect Results & Data ([facility]) Vital Signs (Past 12 Hours) Vital Signs Temp Pulse Pulse Resp BP Pulse Ox 05/31/21 07:29 37.4 C 88 18 89/58 L 96 05/31/21 07:22 85 05/31/21 04:13 36.5 C 87 18 89/56 L 96 05/30/21 23:39 36.9 C 95 H 18 86/52 L 98 05/30/21 22:20 98 H Laboratory Results Laboratory Results - last 24 hr 05/30/21 05/30/21 05/30/21 06:13 10:54 10:54 WBC RBC Hgb 7.3 L Hct MCV MCH MCHC RDW Std Deviation RDW Coeff of Jeannette Plt Count MPV Sodium Potassium Chloride Carbon Dioxide Anion Gap BUN Creatinine Est Cr Clr Drug Dosing Est GFR ( Amer) Est GFR (Non-Af Amer) BUN/Creatinine Ratio Glucose Calcium Magnesium Blood Type A Positive Blood Type Recheck A Positive Antibody Screen NEGATIVE Crossmatch See Detail 05/30/21 05/31/21 05/31/21 16:45 05:46 05:46 WBC 5.30 RBC 2.64 L Hgb 10.4 L D 8.0 L Hct 24.3 L MCV 92.0 MCH 30.3 MCHC 32.9 RDW Std Deviation 54.1 H RDW Coeff of Jeannette 16.1 H Plt Count 159 MPV 8.9 Sodium 145 Potassium 2.5 L* D Chloride 124 H Carbon Dioxide 17 L Anion Gap 4 BUN 10 Creatinine 0.45 L Est Cr Clr Drug Dosing 123.0 Est GFR ( Amer) 132.6 Est GFR (Non-Af Amer) 114.4 BUN/Creatinine Ratio 22.2 H Glucose 68 L Calcium 5.3 L* D Magnesium 1.4 L Blood Type Blood Type Recheck Antibody Screen Crossmatch Diagnostic Findings 05/30/2021: Small bowel enteroscopy was performed by Dr. Graves due to iron deficiency anemia secondary to chronic blood loss and hematemesis. There was a nonbleeding Ebony-Jiang tear with stigmata of recent bleeding found at the GE junction. A few small angio ectasias with no bleeding were found in the gastric body. Coagulation for bleeding prevention was performed. Multiple small angio ectasias with bleeding on contact were found in the second portion of the duodenum and in the third portion of duodenum. Coagulation for bleeding prevention was performed. There were no evidence of ulcers or blood in the stomach was identified. There were no evidence of ulcers in the duodenum. (1) Anemia Anemia type: other cause Other causes of anemia: acute posthemorrhagic Qualified Code(s): D62 - Acute posthemorrhagic anemia
[2021-05-31] MEDS: NORMOSOL-R 1,000 ML IV SCH (09:04)
[2021-05-31] MEDS ORDERED: POTASSIUM CHLORIDE / WTR 10 MEQ/100 ML PLCT IV STA ×2 (09:14→09:38)
[2021-05-31] MEDS ORDERED: STAT IV STA (09:18)
[2021-05-31] MEDS ORDERED: CALCIUM GLUCONATE 10% 2,000 MG in DEXTROSE 5% 50 ML IV ONE (09:18)
--- NOTE | 2021-05-31 09:32 | Hospitalist Progress Note ---
Date of Service May 31, 2021 Assessment & Plan (1) Anemia: Plan: Acute blood loss anemia likely from Gastrointestinal blood loss Patient has acute blood loss anemia but lack of melena or rising BUN this year appears to be in all upper GI. Likely this is a Ebony-Ford tear however her hereditary hemorrhagic telangiectasia likely may play a role. Her GI scope showed multiple telagectasias which were treated. Patient has received 2 units of blood. Hemoglobin improved to 8, however, she is also receiving fluids. will recheck levels in the afternoon. Appreciate input from GI. continue PPI. (2) Hereditary benign telangiectasia: Plan: As above. (3) HTN (hypertension): Plan: Patient previously on nadolol her blood pressure is low subsequently this will be held at this time as well as her diuretic. (4) Dynamic left ventricular outflow obstruction: Plan: Patient follows Dr. Diez for dynamic left ventricular outflow tract obstruction she does have a murmur on examination. Caution with volume expansion however hypovolemia may augment her flow dynamics being poor she received crystalloid solution in the ER 2 units of blood during her procedure and will be maintained on an additional infusion of fluids overnight Blood pressure has been lower. D/W Chary, patient's BNP normally is around 300. She has not had heart failure in the past and her symptoms have been related with her anemia. BP has been low and will hold off negative inotropic drugs such as verapamil. (5) Hypokalemia: Plan: will replenish (6) Hypomagnesemia: Plan: will replenish (7) Hypocalcemia: Plan: will replenish Admission and Anticipated Discharge Date Admission Date: May 30, 2021 Subjective Patient is resting comfortably in bed. She did report having SOB and some wheezing earlier this morning in which she required nebs. She is reporting that she is feeling better currently. Patient reports being able to walk to the bathroom and she was not dizzy. Patient reports that prior to coming to the hospital she was eating crackers for about a week due to her nausea, but normally eats well. Review of Systems Review of Systems: All systems reviewed & are unremarkable except as noted in HPI & below Physical Exam Physical Exam: The patient appeared well nourished and normally developed. Vital signs as documented. Head exam is normocephalic atraumatic Neck is without JVD, thyromegaly, or carotid bruits. Lungs are clear to auscultation, no focal loss of breath sounds Cardiac exam, Rhythm is regular.. No murmurs, rubs or gallops. Abdominal exam reveals normal bowel sounds, soft non tender, no masses Extremities are nonedematous and both pedal pulses are present Neurologic exam is alert and oriented, no focal loss of strength or sensation Skin is without bruises or rashes Psychologically is without concerns for anxiety or depression.. Results & Data Results & Data ([facility]) Vital Signs (Past 12 Hours) Vital Signs Temp Pulse Pulse Resp BP Pulse Ox 05/31/21 07:29 37.4 C 88 18 89/58 L 96 05/31/21 07:22 85 05/31/21 04:13 36.5 C 87 18 89/56 L 96 05/30/21 23:39 36.9 C 95 H 18 86/52 L 98 05/30/21 22:20 98 H PG Care Time/CCT Total # of Minutes Spent Total Time Spent with Patient: Total time spent is greater than 50% in coordination of care (as documented) at patient's floor/unit and/or counseling patient: Coding Level of Care Code 44983 Subseq Hosp Care Lvl 3 Diagnoses Anemia D62 Anemia type: other cause Other causes of anemia: acute posthemorrhagic Hereditary benign telangiectasia I78.0 HTN (hypertension) I10 Dynamic left ventricular outflow obstruction I51.89 Hypokalemia E87.6 Hypomagnesemia E83.42 Hypocalcemia E83.51 Time Spent (min) 35 (1) Anemia Anemia type: other cause Other causes of anemia: acute posthemorrhagic Qualified Code(s): D62 - Acute posthemorrhagic anemia
[2021-05-31] MEDS: MAGNESIUM SULFATE / D5W 1 GM/100 ML BAG IV SCH ×2 (10:08→11:59)
[2021-05-31 17:03] LABS: BUN Creatinine Ratio 14.3 (10-20); Calcium 7.6 mg/dl (8.5-10.1); Creatinine Clr Calc Pharmacy 87.9 ml/min; Est GFR (African American) 118.7 ml/min; Est GFR (Non-African American) 102.4 ml/min; Magnesium 2.2 mg/dl (1.7-2.4); Phosphorus 1.6 mg/dl (2.5-4.9); Potassium 3.7 mmol/L (3.5-5.1)
[2021-05-31 17:23] LABS: Folate (Folic Acid) 19.86 ng/ml (>5.38)
[2021-05-31] MEDS ORDERED: POTASSIUM PHOS 3 MMOL/1 ML INFUSION IV STA (17:49)
[2021-05-31] MEDS ORDERED: POTASSIUM PHOSPHATE 24 MMOL in SODIUM CHLORIDE 0.9% 500 ML IV ONE (18:30)
[2021-06-01 06:39] LABS: Hematocrit (blood only) 25.6 % (37-47); Hemoglobin 8.7 g/dL (12.0-16.0); Mean Corpuscular Hemoglobin 30.6 pg (25-34); Mean Corpuscular Volume 90.1 fL (80-100); Platelet Count 183 K/uL (130-400); Red Blood Count 2.84 M/uL (4.2-5.4); White Blood Count 4.87 K/uL (4.8-10.8)
[2021-06-01 07:03] LABS: BUN Creatinine Ratio 11.7 (10-20); Calcium 7.6 mg/dl (8.5-10.1); Creatinine Clr Calc Pharmacy 92.4 ml/min; Est GFR (African American) 120.6 ml/min; Est GFR (Non-African American) 104.1 ml/min; Magnesium 1.9 mg/dl (1.7-2.4); Potassium 3.6 mmol/L (3.5-5.1)
--- NOTE | 2021-06-01 08:47 | Gastroenterology Progress Note ---
Date of Service June 01, 2021 Assessment & Plan (1) Hereditary benign telangiectasia: Plan: GI bleed: The patient had small bowel enteroscopy performed by Dr. Graves 05/30/2021. She had a Ebony-Jiang tear noted. She also had several nonbleeding angiectasia's in the stomach and duodenum which were treated with APC. Hemoglobin and hematocrit stable today. Continue Protonix and supportive care measures. Currently on clear liquid diet. Patient will require outpatient GI follow-up and likely a video capsule endoscopy. I will arrange this with our service. Tolerating full liquids. Recommend ADAT Hematemesis: Presented to the emergency department initially with hematemesis. Likely explained by Ebony Jiang tear, continue PPI. No further hematemesis at this time. Anemia: Likely chronic, maybe from SB AVMS. Outpatient capsule as noted above and updated colonoscopy. Stable this morning. 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 Pancreas cyst: 9mm pancreatic head cyst on CT A/P. Will follow-up as outpatient with MRI/MRCP. Patient verbalizes understanding. Case reviewed with Dr. Gauthier. Please refer to supervising physician addendum for further recommendations. I have spent 15 minutes of discrete time performing the activities of this visit which include but are not limited to review of the medical record, obtaining a history, physical exam, and entering information in the electronic record. (2) Anemia: (3) Hematemesis: Admission and Anticipated Discharge Date Admission Date: May 30, 2021 Supervising Physician Co-Signing Physician Notes I have seen and examined the patient. I agree with note above by LOREE Capps except as noted below. HPI Pt dressed and ready to go home. NO abd pain. Concerned about colchicine causing n/v and told her to check with DR Diez regarding that med which was started for pericarditis. PE Abdomen pos bs, nt A/P anemia--outpt GI workup ebony jiang tear--PPI pancreas cyst MRI as outpt. As the supervising physician, I , Juan Carlos Gauthier MD have spent 10 minutes of discrete time performing the activities of this visit which include but not limited to review of the medical records, obtaining a history, physical exam and entering information in the electronic record. LOREE Capps has reported spending 15 minutes of discrete time with the activities of this visit. Subjective The patient is awake alert and oriented this morning sitting at bedside eating her breakfast. She was advanced to full liquid diet and she is tolerating this well. She denies any abdominal pain. Denies nausea or vomiting. Her shortness of breath is much improved this morning although she does feel "a bit swollen". She describes this as a feeling as after you have sat on airplane for a long time. She states that she has only had some traces of stool that have been dark in color. She is passing gas per her report. Review of Systems Review of Systems: All systems reviewed & are unremarkable except as noted in Subjective Physical Exam Constitutional: WD/WN, vitals as above Respiratory: normal respiratory effort, lungs clear to auscultation Cardiovascular: Rate/Rhythm: regular rate and regular rhythm Gastrointestinal (Abdomen): Inspection/Auscultation: abdomen normal to inspection; abdomen not distended Percussion/Palpation: abdomen soft; abdomen nontender and no hepatosplenomegaly Psychiatric: A+Ox3, euthymic affect Results & Data ([facility]) Vital Signs (Past 12 Hours) Vital Signs Temp Pulse Pulse Resp BP Pulse Ox 06/01/21 07:55 36.7 C 86 19 118/79 96 06/01/21 02:53 36.9 C 90 17 107/68 95 05/31/21 23:26 88 05/31/21 22:52 37.0 C 87 18 103/68 99 Laboratory Results Laboratory Results - last 24 hr 05/31/21 05/31/21 05/31/21 05:46 16:10 16:10 WBC RBC Hgb Hct MCV MCH MCHC RDW Std Deviation RDW Coeff of Jeannette Plt Count MPV Sodium 140 Potassium 3.7 D Chloride 114 H Carbon Dioxide 20 L Anion Gap 6 BUN 9 Creatinine 0.63 Est Cr Clr Drug Dosing 87.9 Est GFR ( Amer) 118.7 Est GFR (Non-Af Amer) 102.4 BUN/Creatinine Ratio 14.3 Glucose 78 Calcium 7.6 L D Phosphorus 1.6 L 1.6 L Magnesium 2.2 Vitamin B12 400 Folate 19.86 06/01/21 06/01/21 06:10 06:10 WBC 4.87 RBC 2.84 L Hgb 8.7 L Hct 25.6 L MCV 90.1 MCH 30.6 MCHC 34.0 RDW Std Deviation 52.0 H RDW Coeff of Jeannette 16.0 H Plt Count 183 MPV 9.0 Sodium 140 Potassium 3.6 Chloride 114 H Carbon Dioxide 22 Anion Gap 4 BUN 7 Creatinine 0.60 Est Cr Clr Drug Dosing 92.4 Est GFR ( Amer) 120.6 Est GFR (Non-Af Amer) 104.1 BUN/Creatinine Ratio 11.7 Glucose 87 Calcium 7.6 L Phosphorus Magnesium 1.9 Vitamin B12 Folate (1) Anemia Anemia type: other cause Other causes of anemia: acute posthemorrhagic Qualified Code(s): D62 - Acute posthemorrhagic anemia
[2021-06-01] MEDS: PANTOprazole 40 MG in SYRINGE 0 ML IV SCH (09:06)
--- NOTE | 2021-06-01 11:16 | Discharge Summary ---
Date of Service June 01, 2021 Admission HPI Per Admitting Provider Patient presents to the ER via EMS for hematemesis. Reportedly the patient been sick for a week to 10 days after initiating colchicine therapy from her trackman for possible pericarditis. Patient adamantly denies taking any nonsteroidals ibuprofen Aleve etc. She is not a heavy alcohol user caffeine user. She is never had a GI bleed denies any melena. Vomitus was bright red blood. Does have history of hereditary telangiectasia low to her knowledge has not had much problems from them with regard to nosebleeds or other bleeding etc. In the ER she is hemodynamically stable she is no melena her BUN is elevated and she has anemia with a hemoglobin in the 7 g range. She is consented for blood kept n.p.o. and will have a likely endoscopy Principal Diagnosis GI bleed Discharge Exam The patient is awake, alert and oriented 3, well developed and well nourished, normocephalic and atraumatic, lying in bed and in no acute distress. HEENT--PERRL, EOMI, mucous membranes and oropharynx mildly dry Neck--supple. No JVD. No bruits. Thyroid normal, trachea midline, no adenopathy. Heart--normal S1 and S2. No murmurs, rubs or gallops. Lungs--clear bilaterally, no respiratory distress, no accessory muscle use. Abdomen--normal bowel sounds and soft. Mild epigastric and left sided abdominal pain Extremities--no cyanosis or clubbing. No edema. Dermatologic--normal skin turgor, normal color, no abnormal lymph nodes, no rash. Neurologic--cranial nerves II through XII grossly intact. Rheumatologic--normal range of motion. Psychiatric--normal affect. Discharge Data Allergies Allergy/AdvReac Type Severity Reaction Status Date / Time animal dander Allergy Intermediate SNEEZING, Verified 05/30/21 13:44 CONGESTION Consultations 05/30/21 07:42 ED Decision to Admit Stat 05/30/21 09:52 Consult Gastroenterology Routine Procedures Performed Operation Date: 05/30/21 16:30 Actual Procedures p Small Bowel Enteroscopy EGD - Justo Graves MD Ordered Studies 05/30/21 06:12 CT abd pelvis IV con only Stat Hospital Course (1) Anemia: Acute blood loss anemia likely from Gastrointestinal blood loss Patient has acute blood loss anemia but lack of melena or rising BUN this year appears to be in all upper GI. Likely this is a Ebony-Ford tear however her hereditary hemorrhagic telangiectasia likely may play a role. Her GI scope showed multiple telagectasias which were treated. Patient has received 2 units of blood. Hemoglobin improved to 8, GI recommended discharge and outpatient follow up for possible capsule endoscopy (2) Hereditary benign telangiectasia: As above. (3) HTN (hypertension): Patient previously on nadolol her blood pressure is low subsequently this will be held at this time as well as her diuretic. (4) Dynamic left ventricular outflow obstruction: Patient follows Dr. Diez for dynamic left ventricular outflow tract obstruction she does have a murmur on examination. Caution with volume expansion however hypovolemia may augment her flow dynamics being poor she r eceived crystalloid solution in the ER 2 units of blood during her procedure and will be maintained on an additional infusion of fluids overnight Blood pressure has been lower. D/W Chary, patient's BNP normally is around 300. She has not had heart failure in the past and her symptoms have been related with her anemia. BP has been low and will hold off negative inotropic drugs such as verapamil. (5) Hypokalemia: will replenish (6) Hypomagnesemia: will replenish (7) Hypocalcemia: will replenish Total Time Total Time Spent Total Time Spent (In Minutes): 35 Discharge Plan Discharge Items Patient Disposition: Home - Self-Care Reason For Visit: ILLNESS Discharge Diagnosis: GI bleed Activity: Resume your previous activity Non-emergency contact: Primary Care Provider and Policeman Call non-emergency contact if: you have any medication questions Follow-up/Referrals: Ban Dos Santos PA-C [Primary Care Provider] - 06/05/21 9:30 am Diet: Regular Addtl Attending Provider Instructions: please make appointment to follow up with your GI doctor Pending Studies at Discharge: No Stand-Alone Forms: My [employer], Smoking Cessation Medications and DC Order Prescriptions: New pantoprazole [Protonix] 40 mg tablet,delayed release (DR/EC) 40 mg PO DAILY Qty: 30 RF: 0 Continued nadolol 20 mg tablet 10 mg PO BID RF: 0 furosemide 20 mg tablet 20 mg PO QAM RF: 0 colchicine 0.6 mg tablet 0.6 mg PO BID RF: 0 cholecalciferol (vitamin D3) [Vitamin D3] 25 mcg (1,000 unit) Capsule 25 mcg PO QAM RF: 0 fluticasone propion-salmeterol [Advair Diskus] 250-50 mcg/dose Blister With Device 1 inh INHALATION BID PRN (Reason: Cold Symptoms) RF: 0 Mirena 20 mcg/24 hours (6 yrs) 52 mg Intrauterine Device 20 mcg INTRAUTERINE CONTINOUS RF: 0 albuterol sulfate 90 mcg/actuation Hfa Aerosol Inhaler 2 puff INHALATION DIRECTED PRN (Reason: Shortness Of Breath) RF: 0 Discharge Orders: Discharge Order (Routine); Ordered 06/01/21 Ordered By: Cynthia Cruz Admission Data Admit Date/Time: 05/30/21 08:38 Attending Provider: Cynthia Cruz Admit Provider: Jj Reddy Primary Care Provider: Ban Dos Santos Other Providers: Jj Reddy ; Juan Carlos Gauthier Other Interventions: Discharge Summary Assessment (RN) Last Done: 05/30/21 15:02 Coding Level of Care Code D/C DAY MANAGEMENT >30 MINS Diagnoses Anemia D62 Anemia type: other cause Other causes of anemia: acute posthemorrhagic Hereditary benign telangiectasia I78.0 HTN (hypertension) I10 Dynamic left ventricular outflow obstruction I51.89 Hypokalemia E87.6 Hypomagnesemia E83.42 Hypocalcemia E83.51 Time Spent (min) 35
== END 2021-06-01 16:59 | disposition home or self-care (01) | DRG 378 ==
LOC: ED 05:49 → SUATTDRO 08:38 → 2S 08:38
DX: D62 Acute posthemorrhagic anemia; K22.6 Gastro-esophageal laceration-hemorrhage syndrome; K55.21 Angiodysplasia of colon with hemorrhage; I78.0 Hereditary hemorrhagic telangiectasia; E83.42 Hypomagnesemia; I11.9 Hypertensive heart disease without heart failure; E87.6 Hypokalemia; I51.89 Other ill-defined heart diseases; E83.51 Hypocalcemia